=== PATIENT | female | born 1995 | race African-American/Black ===

== ENCOUNTER → 2016-05-15 | Outpatient (CLI) | payer BC | LOC: MW.CHOBGYN 09:48 | PROVIDERS: ATTEND Obstetrics & Gynecology | DX: Z34.90 Encounter for supervision of normal pregnancy, unspecified, unspecified trimester (principal) | CPT/HCPCS: 36415; 81003; 82105; 82677; 84702; 85027; 86336; 86592; 86762; 86803; 86850; 86900; 86901; 87086; 87340; 87389 ==

== ENCOUNTER → 2016-06-11 | Outpatient (CLI) | payer BC | LOC: MW.CHOBGYN 09:19 | PROVIDERS: ATTEND Advanced Practice Midwife | DX: A74.9 Chlamydial infection, unspecified (principal) | CPT/HCPCS: 87491; 87591 ==

== ENCOUNTER → 2016-07-09 | Outpatient (CLI) | payer BC | END | disposition home or self-care (01) | LOC: MW.CHOBGYN 09:05 | PROVIDERS: ATTEND Advanced Practice Midwife | DX: Z34.90 Encounter for supervision of normal pregnancy, unspecified, unspecified trimester (principal) | CPT/HCPCS: 36415; 82950; 85027; 86850 ==

== ENCOUNTER 2016-10-03 07:40 | Emergency (ER) | payer BC, MEDICAID ==
[2016-10-03] MEDS ORDERED: Benzocaine 20% Topical Spray UD MUCMEM ONE (08:00)
[2016-10-03] MEDS ORDERED: Lidocaine 2% Viscous Solution 15 ML Cup PO ONE (08:00)
--- NOTE | 2016-10-03 08:06 | EDM.PDOC ---
ED HPI GENERAL MEDICAL PROBLEM - General Chief Complaint: ENT Problem Stated Complaint: JAW/TOOTH PAIN Time Seen by Provider: 10/03/16 07:48 - History of Present Illness INITIAL COMMENTS - FREE TEXT/NARRATIVE: HISTORY AND PHYSICAL: History of present illness: The patient is a 21-year-old female with no significant past medical history but who is 37 weeks with her first child and is going to be delivering here at our hospital with our nurse welder tech; the patient presents with complaints of dental pain of one her right upper molar teeth. She says that in area has broken off due to a cavity and there is pain there. She is asking for a pain shot. She has not talked to her provider about pain management nor has she went to see a dentist. She has no facial swelling no sore throat fever chills nausea vomiting or other systemic complaints. She's had no vaginal bleeding and no abdominal pain contractions or cramping today and the baby has been moving. Review of systems: As per history of present illness and below otherwise all systems reviewed and negative. Past medical history: As per history of present illness and as reviewed below otherwise noncontributory. Surgical history: As per history of present illness and as reviewed below otherwise noncontributory. Social history: No reported history of drug or alcohol abuse. Family history: As per history of present illness and as reviewed below otherwise noncontributory. Physical exam: Gen.: Well-developed well-nourished female who is visibly gravid and nontoxic HEENT: Atraumatic, normocephalic, pupils reactive, negative for conjunctival pallor or scleral icterus, mucous membranes moist, throat clear, neck supple, nontender, trachea midline. There is an area at her right upper molar tooth that has a small fragment missing and there is minimal swelling in the area but no fluctuance and there is tenderness. There is no facial swelling and there is some shoddy anterior cervical adenopathy without nuchal rigidity. Lungs: Clear to auscultation, breath sounds equal bilaterally, chest nontender. Heart: S1S2, regular rate and rhythm no overt murmurs Abdomen: Soft, nondistended, nontender. Gravid uterus which is nontender Pelvis: Deferred Genitourinary: Deferred. Rectal: Deferred. Extremities: Atraumatic, negative for cords or calf pain. Neurovascular unremarkable. Neuro: Awake, alert, oriented. Cranial nerves II through XII unremarkable. Cerebellum unremarkable. Motor and sensory unremarkable throughout. Exam nonfocal. Diagnostics: heart [id number] Therapeutics: Dental balls I told the patient that I would discuss pain management with the nurse welder tech as she is close to delivery of this child and I did not want to give her any narcotics. She is asking for a "pain shot". I will give her dental balls and discuss further management with her provider. 0803: Case was discussed with Zeynep Yost the nurse welder tech was aware of the case and agrees with the dental balls and amoxicillin prescription and says that she can see this patient in her clinic now to further discuss pain management and any other concerns. Impression: Dental pain/fracture, third trimester stable Definitive disposition and diagnosis as appropriate pending reevaluation and review of above. 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 ED EXAM, GENERAL - Physical Exam Exam: See Below (See dictation) Course - Vital Signs Last Recorded V/S: Last Vital Signs Temp 36.6 C 10/03/16 07:45 Pulse 80 10/03/16 07:45 Resp 20 10/03/16 07:45 BP 125/60 10/03/16 07:45 Pulse Ox 99 10/03/16 07:45 - Orders/Labs/Meds Orders: Active Orders 24 hr Category Date Time Status Communication Order [RC] STAT Care 10/03/16 07:53 Ordered Benzocaine [Hurricaine One 20%] Med 10/03/16 08:00 Once 2 each MUCMEM ONETIME ONE Lidocaine 2% [Xylocaine 2% Viscous] Med 10/03/16 08:00 Once 15 ml PO ONETIME ONE Departure - Departure Time of Disposition: 08:07 Disposition: Home, Self-Care 01 Condition: Good Clinical Impression: Pain, dental, Third trimester - Discharge Information Forms: ED Department Discharge Additional Instructions: The following information is given to patients seen in the emergency department who are being discharged to home. This information is to outline your options for follow-up care. We provide all patients seen in our emergency department with a follow-up referral. The need for follow-up, as well as the timing and circumstances, are variable depending upon the specifics of your emergency department visit. If you don't have a primary care physician on staff, we will provide you with a referral. We always advise you to contact your personal physician following an emergency department visit to inform them of the circumstance of the visit and for follow-up with them and/or the need for any referrals to a consulting specialist. The emergency department will also refer you to a specialist when appropriate. This referral assures that you have the opportunity for followup care with a specialist. All of these measure are taken in an effort to provide you with optimal care, which includes your followup. Under all circumstances we always encourage you to contact your private physician who remains a resource for coordinating your care. When calling for followup care, please make the office aware that this follow-up is from your recent emergency room visit. If for any reason you are refused follow-up, please contact the [facility] emergency department at and ask to speak to the emergency department charge nurse. [facility] [address] [id number] You can use the dental balls your given today for pain as shown. A prescription for the amoxicillin and please go to the clinic to be seen by the nurse welder tech now to further discuss pain management. Return to ER as needed and as discussed - My Orders Last 24 Hours: My Active Orders 10/03/16 07:53 Communication Order [RC] STAT 10/03/16 08:00 Benzocaine [Hurricaine One 20%] 2 each MUCMEM ONETIME ONE Lidocaine 2% [Xylocaine 2% Viscous] 15 ml PO ONETIME ONE - Assessment/Plan Last 24 Hours: My Active Orders 10/03/16 07:53 Communication Order [RC] STAT 10/03/16 08:00 Benzocaine [Hurricaine One 20%] 2 each MUCMEM ONETIME ONE Lidocaine 2% [Xylocaine 2% Viscous] 15 ml PO ONETIME ONE
[2016-10-03 08:24] VITALS: BP 109/55
== END 2016-10-03 08:16 | disposition home or self-care (01) ==
LOC: MW.ED 07:40
DX: O99.613 Diseases of the digestive system complicating pregnancy, third trimester (principal); K03.81 Cracked tooth; O99.513 Diseases of the respiratory system complicating pregnancy, third trimester; J45.909 Unspecified asthma, uncomplicated; Z91.018 Allergy to other foods; Z3A.37 37 weeks gestation of pregnancy
CPT/HCPCS: 99282; A9270; 99283

== ENCOUNTER 2016-10-24 00:40 | Inpatient (IN) | payer BC, MEDICAID ==
[2016-10-24] MEDS ORDERED: Misoprostol 25 MCG (1/4 of 100 MCG) Tab VAG PRN (00:49)
[2016-10-24] MEDS ORDERED: Water For Irrigation,Sterile 1,000 ML Container IRR PRN (00:49)
[2016-10-24] MEDS ORDERED: Terbutaline 1 MG/ML SDV SUBCUT PRN (00:49)
[2016-10-24] MEDS ORDERED: Carboprost Tromethamine 250 MCG/1 ML Amp IM PRN (00:49)
[2016-10-24] MEDS ORDERED: Misoprostol 200 MCG Tab PO PRN (00:49)
[2016-10-24] MEDS ORDERED: Butorphanol 1 MG/ML SDV IVPUSH PRN (00:49)
[2016-10-24] MEDS ORDERED: Sodium Chloride 0.9% 10 ML Syringe FLUSH PRN (00:49)
[2016-10-24] MEDS ORDERED: Lidocaine 1% 50 ML MDV INJECT PRN (00:49)
[2016-10-24] MEDS ORDERED: Nalbuphine 10 MG/1 ML Vial IVPUSH PRN (00:49)
[2016-10-24] MEDS ORDERED: Methylergonovine 0.2 MG/1 ML Amp IM PRN (00:49)
[2016-10-24] MEDS ORDERED: Sodium Chloride 0.9% 2.5 ML Syringe FLUSH PRN (00:49)
[2016-10-24] MEDS ORDERED: Misoprostol 25 MCG (1/4 of 100 MCG) Tab VAG SCH (01:00)
[2016-10-24] MEDS ORDERED: Oxytocin/Lactated Ringers 30 UNIT/500 ML BAG IV SCH ×2 (01:00)
[2016-10-24] MEDS: Lactated Ringers 1,000 ML IV SCH ×4 (01:21→09:00)
--- NOTE | 2016-10-24 08:36 | PCM.LDHP ---
L&D History of Present Illness - General Date of Service: 10/24/16 Admit Problem/Dx: Patient Status Order with Admit Dx/Problem 10/24/16 00:49 Patient Status [ADT] Routine Admission Diagnosis/Problem Admission Diagnosis/Problem Source of Information: Patient History Limitations: Reports: No Limitations - History of Present Illness Improves with: Reports: None Worsens with: Reports: None Associated Symptoms: Reports: N - Related Data Allergies/Adverse Reactions: Allergies Allergy/AdvReac Type Severity Reaction Status Date / Time nuts Allergy throat Uncoded 04/27/16 22:07 swelling Home Medications: Home Meds Fluticasone Propionate [Flonase Allergy Relief] 2 spray INH ASDIRECTED PRN 10/08 [History] Montelukast [Singulair] 10 mg PO ONETIME 10/09/15 [History] Past Medical History - Past Health History Medical/Surgical History: Denies Medical/Surgical History Other HEENT History: broken/missing teeth Cardiovascular History: Reports: None Respiratory History: Reports: Asthma 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: , 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) 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 Musculoskeletal History: Reports: 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) Other Musculoskeletal History: Scoliosis Psychiatric History: Reports: None - Infectious Disease History Infectious Disease History: Reports: Chicken Pox, Hepatitis B Social & Family History - Family History Family Medical History: Noncontributory Cardiac: Reports: Hypertension : Reports: Dialysis OBGYN: Reports: Endocrine/Metabolic: Reports: Diabetes, type II Oncologic: Reports: Breast - Tobacco Use Smoking Status *Q: Never Smoker Years of Tobacco use: 2 Packs/Tins Daily: 0.1 Second Hand Smoke Exposure: No - Caffeine Use Caffeine Use: Reports: None - Recreational Drug Use Recreational Drug Use: No H&P Review of Systems - Review of Systems: Review Of Systems: See Below General: Reports: No Symptoms HEENT: Reports: No Symptoms Pulmonary: Reports: No Symptoms Cardiovascular: Reports: No Symptoms Gastrointestinal: Reports: No Symptoms Genitourinary: Reports: No Symptoms Musculoskeletal: Reports: No Symptoms Skin: Reports: No Symptoms Psychiatric: Reports: No Symptoms Neurological: Reports: No Symptoms Hematologic/Lymphatic: Reports: No Symptoms Immunologic: Reports: No Symptoms L&D Exam - Exam Exam: See Below - Vital Signs Weight: 67.6 kg - OB Specific Fundal Height In cm: 37 Contraction Intensity: Moderate to Strong Movement: Active Heart Tones: Present Presentation: Vertex - Barboza Score Barboza Score Cervix Position: Anterior Barboza Score Consistency: Soft Barboza Score Effacement: 51-70% Barboza Score Dilation: 3-4 cm Barboza Score Infant's Station: -2 Barboza Score Total: 9 - Exam General: Alert, Oriented HEENT: PERRLA, Conjunctiva Clear, EACs Clear, EOMI, Hearing Intact, Mucosa Moist & [place], Nares Patent, Normal Nasal Septum, Posterior Pharynx Clear, TMs Clear Neck: Supple, Trachea Midline Lungs: Clear to Auscultation, Normal Respiratory Effort Cardiovascular: Regular Rate, Regular Rhythm GI/Abdominal Exam: Normal Bowel Sounds, Soft, Non-Tender, No Organomegaly, No Distention, No Abnormal Bruit, No Mass, Pelvis Stable Rectal Exam: Normal Exam, Normal Rectal Tone Genitourinary: Normal external exam, Normal bimanual exam, Normal speculum exam Back Exam: Normal Inspection, Full Range of Motion Extremities: Normal Inspection, Normal Range of Motion, Non-Tender, No Pedal Edema, Normal Capillary Refill Skin: Warm, Dry, Intact Neurological: Cranial Nerves Intact, Reflexes Equal Bilateral Psychiatric: Alert, Normal Affect, Normal Mood - Patient Data Lab Results Last 24 hrs: Laboratory Results - last 24 hr 10/24/16 10/24/16 Range/Units 01:19 01:19 WBC 12.79 H (4.0-11.0) K/uL RBC 3.83 L (4.30-5.90) M/uL Hgb 11.1 L (12.0-16.0) g/dL Hct 34.5 L (36.0-46.0) % MCV 90.1 (80.0-98.0) fL MCH 29.0 (27.0-32.0) pg MCHC 32.2 (31.0-37.0) g/dL RDW Std Deviation 44.9 (28.0-62.0) fl RDW Coeff of Alaina 14 (11.0-15.0) % Plt Count 211 (150-400) K/uL MPV 11.10 (7.40-12.00) fL Blood Type AB POSITIVE Antibody Screen NEGATIVE Result Diagrams: 10/24/16 01:19 Problem List Initiated/Reviewed/Updated: Yes Orders Last 24hrs: Active Orders 24 hr Category Date Time Status Patient Status [ADT] Routine ADT 10/24/16 00:49 Active Bedrest Bathroom Privileges [RC] ASDIRECTED Care 10/24/16 00:49 Active Communication Order [RC] ASDIRECTED Care 10/24/16 00:49 Active Communication Order [RC] ASDIRECTED Care 10/24/16 00:49 Active Communication Order [RC] ASDIRECTED Care 10/24/16 00:49 Active Heart Tones [RC] CONTINUOUS Care 10/24/16 00:49 Active Non Stress Test [RC] PER UNIT ROUTINE Care 10/24/16 00:49 Active May Shower [RC] ASDIRECTED Care 10/24/16 00:49 Active Notify Provider [RC] PRN Care 10/24/16 00:49 Active Notify Provider [RC] PRN Care 10/24/16 00:49 Active Notify Provider [RC] PRN Care 10/24/16 00:49 Active Notify Provider [RC] STAT Care 10/24/16 00:49 Active Oxygen Therapy [RC] ASDIRECTED Care 10/24/16 00:49 Active Up ad Ivette [RC] ASDIRECTED Care 10/24/16 00:49 Active Vaginal Exam [RC] PRN Care 10/24/16 00:49 Active Vaginal Exam [RC] PRN Care 10/24/16 00:49 Active Vital Signs [RC] PER UNIT ROUTINE Care 10/24/16 00:49 Active Vital Signs [RC] PER UNIT ROUTINE Care 10/24/16 00:49 Active Clear Liquid Diet [DIET] Diet 10/24/16 Breakfast Active Butorphanol [Stadol] Med 10/24/16 00:49 Active 1 mg IVPUSH Q1H PRN Carboprost Tromethamine [Hemabate DS] Med 10/24/16 00:49 Active 250 mcg IM ASDIRECTED PRN Lactated Ringers [Ringers, Lactated] 1,000 ml Med 10/24/16 01:00 Active IV ASDIRECTED Lidocaine 1% [Xylocaine 1%] Med 10/24/16 00:49 Active 50 ml INJECT .ONCE PRN Methylergonovine [Methergine] Med 10/24/16 00:49 Active 0.2 mg IM ASDIRECTED PRN Misoprostol [Cytotec] Med 10/24/16 00:49 Active 200 mcg PO .ONCE PRN Misoprostol [Cytotec] Med 10/24/16 01:00 Active 25 mcg VAG .ONCE Misoprostol [Cytotec] Med 10/24/16 00:49 Active 25 mcg VAG Q4H PRN Oxytocin/Lactated Ringers [Pitocin in LR 30 Units/500 Med 10/24/16 01:00 Active ML] 30 unit in 500 ml IV TITRATE Sodium Chloride 0.9% [Saline Flush] Med 10/24/16 00:49 Active 10 ml FLUSH ASDIRECTED PRN Sodium Chloride 0.9% [Saline Flush] Med 10/24/16 00:49 Active 2.5 ml FLUSH ASDIRECTED PRN Terbutaline [Brethine] Med 10/24/16 00:49 Active 0.25 mg SUBCUT ASDIRECTED PRN Water For Irrigation,Sterile [Sterile Water for Med 10/24/16 00:49 Active Irrigation] 1,000 ml IRR ASDIRECTED PRN Scalp Electrode [WOMSER] Per Unit Routine Oth 10/24/16 00:49 Ordered Medication Administration Instruction [OM.PC] Q3H Oth 10/24/16 01:00 Ordered Peripheral IV Insertion Adult [OM.PC] Routine Oth 10/24/16 00:49 Ordered Resuscitation Status Routine Resus Stat 10/24/16 00:49 Ordered Medication Orders Butorphanol Tartrate (Stadol) 1 mg IVPUSH Q1H PRN PRN Reason: Pain Carboprost Tromethamine (Hemabate Ds) 250 mcg IM ASDIRECTED PRN PRN Reason: Post Hemorrhage Lactated Ringer's (Ringers, Lactated) 1,000 mls @ 150 mls/hr IV ASDIRECTED DEANDRE Last Admin: 10/24/16 02:04 Dose: 150 mls/hr Infusion: 10/24/16 02:04 Dose: 0 mls/hr Infusion: 10/24/16 02:04 Dose: 0 mls/hr Admin: 10/24/16 01:21 Dose: 150 mls/hr Oxytocin/Lactated Ringer's (Pitocin In Lr 30 Units/500 Ml) 30 unit in 500 mls @ 2 mls/hr IV TITRATE DEANDRE; 2 MUNITS/MIN PRN Reason: Protocol Last Titration: 10/24/16 04:34 Dose: 6 munits/min, 6 mls/hr Titration: 10/24/16 03:17 Dose: 4 munits/min, 4 mls/hr Admin: 10/24/16 02:45 Dose: 2 munits/min, 2 mls/hr Lidocaine HCl (Xylocaine 1%) 50 ml INJECT .ONCE PRN PRN Reason: Laceration repair Methylergonovine Maleate (Methergine) 0.2 mg IM ASDIRECTED PRN PRN Reason: Post Hemorrhage Misoprostol (Cytotec) 200 mcg PO .ONCE PRN PRN Reason: Post Hemorrhage Misoprostol (Cytotec) 25 mcg VAG .ONCE DEANDRE Misoprostol (Cytotec) 25 mcg VAG Q4H PRN PRN Reason: Cervical Ripening Stop: 10/25/16 04:50 Sodium Chloride (Saline Flush) 10 ml FLUSH ASDIRECTED PRN PRN Reason: Keep Vein Open Sodium Chloride (Saline Flush) 2.5 ml FLUSH ASDIRECTED PRN PRN Reason: Keep Vein Open Sterile Water (Sterile Water For Irrigation) 1,000 ml IRR ASDIRECTED PRN PRN Reason: delivery Terbutaline Sulfate (Brethine) 0.25 mg SUBCUT ASDIRECTED PRN PRN Reason: Tacysystole Assessment/Plan Comment:: Term admitted for elective induction she is responding to Pitocin. In active labor she can have epidural when she wanted
[2016-10-24] MEDS ORDERED: fentaNYL 100 MCG/2 ML SDV ONE ×2 (08:51→19:15)
[2016-10-24] MEDS ORDERED: Ropivacaine 0.2% 2 MG/ML 20 ML SDV ONE (08:52)
[2016-10-24] MEDS ORDERED: Ropivacaine HCl/PF 100 ML ONE (16:24)
[2016-10-24] MEDS ORDERED: Bupivacaine 0.25% 10 ML SDV ONE (16:24)
[2016-10-24] MEDS ORDERED: Bupivacaine 0.5% 10 ML SDV ONE (19:15)
[2016-10-24] MEDS ORDERED: Witch Hazel Medicated Pads 40/Jar TOP PRN (21:07)
[2016-10-24] MEDS ORDERED: Ibuprofen 400 MG Tab PO PRN (21:07)
[2016-10-24] MEDS ORDERED: oxyCODONE 5 MG Tab PO PRN (21:07)
[2016-10-24] MEDS ORDERED: Benzocaine/Menthol 20%-0.5% Spray 78 GM Cannister TOP PRN (21:07)
[2016-10-24] MEDS ORDERED: Bisacodyl 10 MG Supp RECTAL PRN (21:07)
[2016-10-24] MEDS ORDERED: Docusate Sodium 100 MG Cap PO PRN (21:07)
[2016-10-24] MEDS ORDERED: Lanolin 100% Cream 7 GM Tube TOP PRN (21:07)
[2016-10-24] MEDS ORDERED: Acetaminophen 500 MG Tab PO PRN ×2 (21:07)
--- NOTE | 2016-10-24 23:09 | PCM48HPAN ---
Post Anesthesia Note - EVALUATION WITHIN 48HRS OF ANESTHETIC Vital Signs in Normal Range: Yes Patient Participated in Evaluation: Yes Respiratory Function Stable: Yes Airway Patent: Yes Cardiovascular Function Stable: Yes Hydration Status Stable: Yes Pain Control Satisfactory: Yes Nausea and Vomiting Control Satisfactory: Yes Mental Status Recovered: Yes
[2016-10-24] MEDS: Ibuprofen 800 MG Tab PO PRN (23:56)
--- NOTE | 2016-10-25 01:22 | OR ---
SURGEON: Naren Perez MD DATE OF PROCEDURE: Ms. Riggins is a 21-year-old primigravida. She is 40+. She is admitted for an elective induction. At the time of admission, she was spontaneously dilated and she was 3 to 4 cm. She needed Pitocin augmentation. The patient continued to progress well. She had a variable deceleration throughout the process of labor with occasional late but later on, the heart tracing straightened out and it was category 1. The patient had epidural anesthesia for labor analgesia. She had an artificial rupture of the membrane at 4 cm and clear fluid. The patient continued to progress and she became complete-complete and she was able to accomplish a normal spontaneous vaginal delivery of male fetus. score reported to be 8 and 9. The weight is not available. The placenta delivered spontaneous, complete, and intact. The perineum was intact. There is no perineal or labial laceration. ESTIMATED BLOOD LOSS: 250 to 300 mL in this . There was no complication. MARCELO / RAMBO /[id number]
--- NOTE | 2016-10-25 09:08 | PCM.PNPP ---
- General Info Date of Service: 10/25/16 Functional Status: Reports: Pain Controlled - Review of Systems General: Reports: No Symptoms HEENT: Reports: No Symptoms Pulmonary: Reports: No Symptoms Cardiovascular: Reports: No Symptoms Gastrointestinal: Reports: No Symptoms Genitourinary: Reports: No Symptoms Musculoskeletal: Reports: No Symptoms Skin: Reports: No Symptoms Neurological: Reports: No Symptoms Psychiatric: Reports: No Symptoms - General Info Date of Service: 10/25/16 - Patient Data Weight - Most Recent: 67.6 kg Med Orders - Current: Current Medications Acetaminophen (Tylenol Extra Strength) 500 mg PO Q4H PRN PRN Reason: Pain Acetaminophen (Tylenol Extra Strength) 1,000 mg PO Q4H PRN PRN Reason: Pain Benzocaine/Menthol (Dermoplast Pain Relief 20%-0.5% [place]) 78 gm TOP ASDIRECTED PRN PRN Reason: Perineal Comfort Measure Bisacodyl (Dulcolax) 10 mg RECTAL .ONCE PRN PRN Reason: Constipation Butorphanol Tartrate (Stadol) 1 mg IVPUSH Q1H PRN PRN Reason: Pain Carboprost Tromethamine (Hemabate Ds) 250 mcg IM ASDIRECTED PRN PRN Reason: Post Hemorrhage Docusate Sodium (Colace) 100 mg PO BID PRN PRN Reason: Constipation Emollient Ointment (Lansinoh Hpa) 0 gm TOP ASDIRECTED PRN PRN Reason: Sore Nipples Lactated Ringer's (Ringers, Lactated) 1,000 mls @ 150 mls/hr IV ASDIRECTED DEANDRE Last Admin: 10/24/16 09:00 Dose: 150 mls/hr Oxytocin/Lactated Ringer's (Pitocin In Lr 30 Units/500 Ml) 30 unit in 500 mls @ 2 mls/hr IV TITRATE DEANDRE; 2 MUNITS/MIN PRN Reason: Protocol Last Titration: 10/24/16 14:55 Dose: 6 munits/min, 6 mls/hr Ibuprofen (Motrin) 400 mg PO Q4H PRN PRN Reason: Pain Ibuprofen (Motrin) 800 mg PO Q6H PRN PRN Reason: Pain Last Admin: 10/24/16 23:56 Dose: 800 mg Lidocaine HCl (Xylocaine 1%) 50 ml INJECT .ONCE PRN PRN Reason: Laceration repair Methylergonovine Maleate (Methergine) 0.2 mg IM ASDIRECTED PRN PRN Reason: Post Hemorrhage Misoprostol (Cytotec) 200 mcg PO .ONCE PRN PRN Reason: Post Hemorrhage Misoprostol (Cytotec) 25 mcg VAG .ONCE DEANDRE Oxycodone HCl (Oxycodone) 5 mg PO Q2H PRN PRN Reason: Pain Sodium Chloride (Saline Flush) 10 ml FLUSH ASDIRECTED PRN PRN Reason: Keep Vein Open Sodium Chloride (Saline Flush) 2.5 ml FLUSH ASDIRECTED PRN PRN Reason: Keep Vein Open Sterile Water (Sterile Water For Irrigation) 1,000 ml IRR ASDIRECTED PRN PRN Reason: delivery Terbutaline Sulfate (Brethine) 0.25 mg SUBCUT ASDIRECTED PRN PRN Reason: Tacysystole Witch Nayeli (Tucks) 1 pad TOP ASDIRECTED PRN PRN Reason: comfort care Discontinued Medications Bupivacaine HCl (Sensorcaine-Mpf 0.25%) Confirm Administered Dose 10 ml .ROUTE .STK-MED ONE Stop: 10/24/16 16:25 Bupivacaine HCl (Sensorcaine-Mpf 0.5%) Confirm Administered Dose 10 ml .ROUTE .STK-MED ONE Stop: 10/24/16 19:16 Fentanyl (Sublimaze) Confirm Administered Dose 100 mcg .ROUTE .STK-MED ONE Stop: 10/24/16 08:52 Fentanyl (Sublimaze) Confirm Administered Dose 100 mcg .ROUTE .STK-MED ONE Stop: 10/24/16 19:16 Oxytocin/Lactated Ringer's (Pitocin In Lr 30 Units/500 Ml) 30 unit in 500 mls @ 999 mls/hr IV TITRATE DEANDRE; 999 MUNITS/MIN PRN Reason: Protocol Stop: 10/24/16 01:31 Ropivacaine/Fentanyl/NS (Fentanyl 2 Mcg-Ropiv 0.2%-Ns) Confirm Administered Dose 100 mls @ as directed .ROUTE .STK-MED ONE Stop: 10/24/16 08:51 Ropivacaine (Naropin 0.2%) Confirm Administered Dose 100 mls @ as directed .ROUTE .STK-MED ONE Stop: 10/24/16 16:25 Misoprostol (Cytotec) 25 mcg VAG Q4H PRN PRN Reason: Cervical Ripening Stop: 10/25/16 04:50 Nalbuphine HCl (Nubain) 10 mg IVPUSH Q1H PRN PRN Reason: Pain (severe 7-10) Stop: 10/24/16 02:50 Ropivacaine (Naropin 0.2%) Confirm Administered Dose 20 ml .ROUTE .STK-MED ONE Stop: 10/24/16 08:53 - Infant Interaction Disposition, : Perry in Room with Family Interaction: Holding Feeding: Attempted ; Nursed Fair/Poor Support Person: Significant Other - Recovery Exam Fundal Tone: Firm Fundal Level: At Umbilicus Fundal Placement: Midline Lochia Amount: Small Lochia Color: Rubra/Red Perineum Description: Intact, Minimal Bruising/Swelling Episiotomy/Laceration: None Bladder Status: Voiding Urinary Elimination: Voided - Exam General: Alert, Oriented HEENT: Pupils Equal Neck: Supple Lungs: Clear to Auscultation, Normal Respiratory Effort Cardiovascular: Regular Rate, Regular Rhythm GI/Abdominal Exam: Normal Bowel Sounds, Soft, Non-Tender, No Organomegaly, No Distention, No Abnormal Bruit, No Mass, Pelvis Stable Extremities: Normal Inspection, Normal Range of Motion, Non-Tender, No Pedal Edema, Normal Capillary Refill Skin: Warm, Dry, Intact Wound/Incisions: Healing Well Neurological: No New Focal Deficit Psy/Mental Status: Alert, Normal Affect, Normal Mood - Problem List Review Problem List Initiated/Reviewed/Updated: Yes - My Orders Last 24 Hours: My Active Orders 10/24/16 21:07 Patient Status [ADT] Routine May Shower [RC] ASDIRECTED Up ad Ivette [RC] ASDIRECTED Vital Signs [RC] PER UNIT ROUTINE Acetaminophen [Tylenol Extra Strength] 1,000 mg PO Q4H PRN Acetaminophen [Tylenol Extra Strength] 500 mg PO Q4H PRN Benzocaine/Menthol [Dermoplast Pain Relief 20%-0.5% [place]] 78 gm TOP ASDIRECTED PRN Bisacodyl [Dulcolax] 10 mg RECTAL .ONCE PRN Docusate Sodium [Colace] 100 mg PO BID PRN Ibuprofen [Motrin] 400 mg PO Q4H PRN Ibuprofen [Motrin] 800 mg PO Q6H PRN Lanolin [Lansinoh HPA] See Dose Instructions TOP ASDIRECTED PRN Jersonyoana Nayeli [Tucks] 1 pad TOP ASDIRECTED PRN oxyCODONE 5 mg PO Q2H PRN Assess Lochia [WOMSER] Per Unit Routine Assess Uterine Involution [WOMSER] Per Unit Routine Peripheral IV Discontinue [OM.PC] Routine 10/25/16 05:11 HEMOGLOBIN/HEMATOCRIT,HH [HEME] Timed - Plan Plan:: Term admitted for elective induction she is responding to Pitocin. In active labor she can have epidural when she wanted
[2016-10-25] MEDS: Ibuprofen 800 MG Tab PO PRN ×2 (10:54→17:24)
[2016-10-26] MEDS: Ibuprofen 800 MG Tab PO PRN (06:38)
--- NOTE | 2016-10-26 09:04 | PCM.DCSUM1 ---
Discharge Summary - Discharge Data Discharge Date: 10/26/16 Discharge Disposition: Home, Self-Care 01 Condition: Good - Patient Instructions Diet: Usual Diet as Tolerated Activity: As Tolerated Driving: Do Not Drive Showering/Bathing: May Shower - Discharge Plan Home Medications: Home Meds Fluticasone Propionate [Flonase Allergy Relief] 2 spray INH ASDIRECTED PRN 10/08 [History] Montelukast [Singulair] 10 mg PO ONETIME 10/09/15 [History] Referrals: [facility] [Outside] Naren Perez MD [Physician] - 11/28/16 10:45 am - General Info Date of Service: 10/26/16 Functional Status: Reports: Pain Controlled - Review of Systems General: Reports: No Symptoms HEENT: Reports: No Symptoms Pulmonary: Reports: No Symptoms Cardiovascular: Reports: No Symptoms Gastrointestinal: Reports: No Symptoms Genitourinary: Reports: No Symptoms Musculoskeletal: Reports: No Symptoms Skin: Reports: No Symptoms Neurological: Reports: No Symptoms Psychiatric: Reports: No Symptoms - Patient Data Vitals - Most Recent: Last Vital Signs Temp 36.7 C 10/26/16 04:01 Pulse 80 10/26/16 04:01 Resp 16 10/26/16 04:01 BP 133/61 10/26/16 04:01 Pulse Ox 98 10/25/16 20:00 Weight - Most Recent: 67.6 kg Lab Results - Last 24 hrs: Laboratory Results - last 24 hr 10/25/16 Range/Units 05:10 Hgb 11.0 L (12.0-16.0) g/dL Hct 34.1 L (36.0-46.0) % Med Orders - Current: Current Medications Acetaminophen (Tylenol Extra Strength) 500 mg PO Q4H PRN PRN Reason: Pain Acetaminophen (Tylenol Extra Strength) 1,000 mg PO Q4H PRN PRN Reason: Pain Benzocaine/Menthol (Dermoplast Pain Relief 20%-0.5% [place]) 78 gm TOP ASDIRECTED PRN PRN Reason: Perineal Comfort Measure Bisacodyl (Dulcolax) 10 mg RECTAL .ONCE PRN PRN Reason: Constipation Butorphanol Tartrate (Stadol) 1 mg IVPUSH Q1H PRN PRN Reason: Pain Carboprost Tromethamine (Hemabate Ds) 250 mcg IM ASDIRECTED PRN PRN Reason: Post Hemorrhage Docusate Sodium (Colace) 100 mg PO BID PRN PRN Reason: Constipation Emollient Ointment (Lansinoh Hpa) 0 gm TOP ASDIRECTED PRN PRN Reason: Sore Nipples Lactated Ringer's (Ringers, Lactated) 1,000 mls @ 150 mls/hr IV ASDIRECTED DEANDRE Last Admin: 10/24/16 09:00 Dose: 150 mls/hr Oxytocin/Lactated Ringer's (Pitocin In Lr 30 Units/500 Ml) 30 unit in 500 mls @ 2 mls/hr IV TITRATE DEANDRE; 2 MUNITS/MIN PRN Reason: Protocol Last Titration: 10/24/16 14:55 Dose: 6 munits/min, 6 mls/hr Ibuprofen (Motrin) 400 mg PO Q4H PRN PRN Reason: Pain Ibuprofen (Motrin) 800 mg PO Q6H PRN PRN Reason: Pain Last Admin: 10/26/16 06:38 Dose: 800 mg Lidocaine HCl (Xylocaine 1%) 50 ml INJECT .ONCE PRN PRN Reason: Laceration repair Methylergonovine Maleate (Methergine) 0.2 mg IM ASDIRECTED PRN PRN Reason: Post Hemorrhage Misoprostol (Cytotec) 200 mcg PO .ONCE PRN PRN Reason: Post Hemorrhage Misoprostol (Cytotec) 25 mcg VAG .ONCE DEANDRE Oxycodone HCl (Oxycodone) 5 mg PO Q2H PRN PRN Reason: Pain Sodium Chloride (Saline Flush) 10 ml FLUSH ASDIRECTED PRN PRN Reason: Keep Vein Open Sodium Chloride (Saline Flush) 2.5 ml FLUSH ASDIRECTED PRN PRN Reason: Keep Vein Open Sterile Water (Sterile Water For Irrigation) 1,000 ml IRR ASDIRECTED PRN PRN Reason: delivery Terbutaline Sulfate (Brethine) 0.25 mg SUBCUT ASDIRECTED PRN PRN Reason: Tacysystole Witch Nayeli (Tucks) 1 pad TOP ASDIRECTED PRN PRN Reason: comfort care Discontinued Medications Bupivacaine HCl (Sensorcaine-Mpf 0.25%) Confirm Administered Dose 10 ml .ROUTE .[facility] [place]-MED ONE Stop: 10/24/16 16:25 Bupivacaine HCl (Sensorcaine-Mpf 0.5%) Confirm Administered Dose 10 ml .ROUTE .[facility]-MED ONE Stop: 10/24/16 19:16 Fentanyl (Sublimaze) Confirm Administered Dose 100 mcg .ROUTE .[facility]-MED ONE Stop: 10/24/16 08:52 Fentanyl (Sublimaze) Confirm Administered Dose 100 mcg .ROUTE .[facility]-MED ONE Stop: 10/24/16 19:16 Oxytocin/Lactated Ringer's (Pitocin In Lr 30 Units/500 Ml) 30 unit in 500 mls @ 999 mls/hr IV TITRATE DEANDRE; 999 MUNITS/MIN PRN Reason: Protocol Stop: 10/24/16 01:31 Ropivacaine/Fentanyl/NS (Fentanyl 2 Mcg-Ropiv 0.2%-Ns) Confirm Administered Dose 100 mls @ as directed .ROUTE .ST[facility]-MED ONE Stop: 10/24/16 08:51 Ropivacaine (Naropin 0.2%) Confirm Administered Dose 100 mls @ as directed .ROUTE .STK-MED ONE Stop: 10/24/16 16:25 Misoprostol (Cytotec) 25 mcg VAG Q4H PRN PRN Reason: Cervical Ripening Stop: 10/25/16 04:50 Nalbuphine HCl (Nubain) 10 mg IVPUSH Q1H PRN PRN Reason: Pain (severe 7-10) Stop: 10/24/16 02:50 Ropivacaine (Naropin 0.2%) Confirm Administered Dose 20 ml .ROUTE .STK-MED ONE Stop: 10/24/16 08:53 - Exam General: Reports: Alert, Oriented HEENT: Reports: Pupils Equal, Pupils Reactive, EOMI, Mucous Membr. Moist/Learned Neck: Reports: Supple Lungs: Reports: Clear to Auscultation, Normal Respiratory Effort Cardiovascular: Reports: Regular Rate, Regular Rhythm GI/Abdominal Exam: Normal Bowel Sounds, Soft, Non-Tender, No Organomegaly, No Distention, No Abnormal Bruit, No Mass, Pelvis Stable (Female) Exam: Normal External Exam, Normal Speculum Exam, Normal Bimanual Exam Rectal (Female) Exam: Normal Exam, Normal Rectal Tone Back Exam: Reports: Normal Inspection, Full Range of Motion Extremities: Normal Inspection, Normal Range of Motion, Non-Tender, No Pedal Edema, Normal Capillary Refill Skin: Reports: Warm, Dry, Intact Wound/Incisions: Reports: Healing Well Neurological: Reports: No New Focal Deficit Psy/Mental Status: Reports: Alert, Normal Affect, Normal Mood *Q Meaningful Use (DIS) - VTE *Q VTE Criteria *Q: - Stroke *Q Stroke Criteria *Q: - AMI *Q AMI Criteria *Q:
[2016-10-26 09:42] VITALS: BP 124/68
== END 2016-10-26 17:07 | disposition home or self-care (01) | DRG 560 ==
LOC: MW.OBCHECK 00:40 → MW.OB 00:43 → MW.OBCHECK 00:49 → MW.OB 00:49 → OBSVTOIN 19:01 → MW.OB 23:45 → MW.MS 10-25 13:00 → MW.OB 10-25 18:37
PROVIDERS: ADMIT Obstetrics & Gynecology; ATTEND Obstetrics & Gynecology
PROC: 10E0XZZ Delivery of Products of Conception, External Approach (ICD-10-PCS; principal; 2016-10-24)
PROC: 10907ZC Drainage of Amniotic Fluid, Therapeutic from Products of Conception, Via Natural or Artificial Opening (ICD-10-PCS; 2016-10-24)
PROC: 3E033VJ Introduction of Other Hormone into Peripheral Vein, Percutaneous Approach (ICD-10-PCS; 2016-10-24)
DX: O80 Encounter for full-term uncomplicated delivery (principal); Z3A.40 40 weeks gestation of pregnancy; Z37.0 Single live birth
CPT/HCPCS: 01967; 36415; 59025; 85014; 85018; 85027; 86850; 86900; 86901; A9270-GY; J2795; J3010; J7120

== ENCOUNTER 2017-03-31 16:48 | Emergency (ER) | payer BC, MEDICAID ==
[2017-03-31 17:11] VITALS: BP 125/57
--- NOTE | 2017-03-31 18:00 | EDM.PDOC ---
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 Past medical history: As per history of present illness and as reviewed below otherwise noncontributory. Surgical history: As per history of present illness and as reviewed below otherwise noncontributory. Social history: No reported history of drug or alcohol abuse. Family history: As per history of present illness and as reviewed below otherwise noncontributory. Physical exam: HEENT: Atraumatic, normocephalic, pupils reactive, negative for conjunctival pallor or scleral icterus, mucous membranes moist, throat clear, neck supple, nontender, trachea midline. Lungs: Clear to auscultation, breath sounds equal bilaterally, chest nontender. Heart: S1S2, regular, negative for clicks, rubs, or JVD. Abdomen: Soft, nondistended, nontender. Negative for masses or hepatosplenomegaly. Negative for costovertebral tenderness. Pelvis: Stable nontender. Genitourinary: Deferred. Rectal: Deferred. Extremities: Atraumatic, negative for cords or calf pain. Neurovascular unremarkable. Neuro: Awake, alert, oriented. Cranial nerves II through XII unremarkable. Cerebellum unremarkable. Motor and sensory unremarkable throughout. Exam nonfocal. Diagnostics: CBC ABO Rh quantitative beta pelvic ultrasound Therapeutics: None Impression: #1 vaginal bleeding #2 history of first trimester #3 threatened Definitive disposition and diagnosis as appropriate pending reevaluation and review of above. 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: , 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) 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 Musculoskeletal History: Reports: 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) Other Musculoskeletal History: Scoliosis Psychiatric History: Reports: None - Infectious Disease History Infectious Disease History: Reports: Chicken Pox, Hepatitis B Social & Family History - Family History Family Medical History: Noncontributory Cardiac: Reports: Hypertension : Reports: Dialysis OBGYN: Reports: Endocrine/Metabolic: Reports: Diabetes, type II Oncologic: Reports: Breast - Tobacco Use Smoking Status *Q: Never Smoker Years of Tobacco use: 2 Packs/Tins Daily: 0.1 Second Hand Smoke Exposure: No - Caffeine Use Caffeine Use: Reports: None - Recreational Drug Use Recreational Drug Use: No ED ROS GENERAL - Review of Systems Review Of Systems: ROS reveals no pertinent complaints other than HPI. ED EXAM, GENERAL - Physical Exam Exam: See Below (See dictation) Course - Vital Signs Text/Narrative:: Patient's emergency room course has been unremarkable patient refused vaginal exam and transvaginal ultrasound she did consent to transabdominal ultrasound and lab work ultrasound suggestive of likely complete AB quantitative beta is 19 ,000 I discussed with patient the unclear clinical diagnoses at this point but it most likely represents incomplete and recommended admission for observation patient declined to leave AMA and follow-up private medical doctor she is return for persistent or worsening bleeding pain as discussed Last Recorded V/S: Last Vital Signs Temp 37.0 C 03/31/17 17:06 Pulse 85 03/31/17 17:06 Resp 18 03/31/17 17:06 BP 125/57 L 03/31/17 17:06 Pulse Ox 98 03/31/17 17:06 - Orders/Labs/Meds Orders: Active Orders 24 hr Category Date Time Status OB 1st Tri Sgl 1st Gest [US] Stat Exams 03/31/17 17:23 Taken CULTURE URINE [RM] Stat Lab 03/31/17 17:25 Received Labs: Laboratory Tests 03/31/17 03/31/17 03/31/17 Range/Units 17:25 17:32 17:32 WBC 8.84 (4.0-11.0) K/uL RBC 4.07 L (4.30-5.90) M/uL Hgb 13.0 (12.0-16.0) g/dL Hct 37.0 (36.0-46.0) % MCV 90.9 (80.0-98.0) fL MCH 31.9 (27.0-32.0) pg MCHC 35.1 (31.0-37.0) g/dL RDW Std Deviation 41.9 (28.0-62.0) fl RDW Coeff of Alaina 13 (11.0-15.0) % Plt Count 237 (150-400) K/uL MPV 10.10 (7.40-12.00) fL Neut % (Auto) 71.3 (48.0-80.0) % Lymph % (Auto) 21.3 (16.0-40.0) % Bibb % (Auto) 3.8 (0.0-15.0) % Eos % (Auto) 3.1 (0.0-7.0) % Baso % (Auto) 0.5 (0.0-1.5) % Neut # (Auto) 6.3 H (1.4-5.7) K/uL Lymph # (Auto) 1.9 (0.6-2.4) K/uL Bibb # (Auto) 0.3 (0.0-0.8) K/uL Eos # (Auto) 0.3 (0.0-0.7) K/uL Baso # (Auto) 0.0 (0.0-0.1) K/uL Nucleated RBC % 0.0 /100WBC Nucleated RBCs # 0 K/uL HCG, Quant 49684.1 mIU/mL Urine Color RED Urine Appearance BLOODY Urine pH 6.0 (5.0-8.0) Ur Specific Dulzura >= 1.030 (1.001-1.035) Urine Protein 100 (NEGATIVE) mg/dL Urine Glucose (UA) NEGATIVE (NEGATIVE) mg/dL Urine Ketones NEGATIVE (NEGATIVE) mg/dL Urine Occult Blood LARGE H (NEGATIVE) Urine Nitrite NEGATIVE (NEGATIVE) Urine Bilirubin NEGATIVE (NEGATIVE) Urine Urobilinogen 0.2 (<2.0) EU/dL Ur Leukocyte Esterase TRACE (NEGATIVE) Urine RBC TOO NUMEROUS TO CT (0-2/HPF) Urine WBC 1-2 (0-5/HPF) Ur Epithelial Cells FEW (NONE-FEW) Urine Bacteria FEW (NEGATIVE) Blood Type 03/31/17 Range/Units 17:32 WBC (4.0-11.0) K/uL RBC (4.30-5.90) M/uL Hgb (12.0-16.0) g/dL Hct (36.0-46.0) % MCV (80.0-98.0) fL MCH (27.0-32.0) pg MCHC (31.0-37.0) g/dL RDW Std Deviation (28.0-62.0) fl RDW Coeff of Alaina (11.0-15.0) % Plt Count (150-400) K/uL MPV (7.40-12.00) fL Neut % (Auto) (48.0-80.0) % Lymph % (Auto) (16.0-40.0) % Bibb % (Auto) (0.0-15.0) % Eos % (Auto) (0.0-7.0) % Baso % (Auto) (0.0-1.5) % Neut # (Auto) (1.4-5.7) K/uL Lymph # (Auto) (0.6-2.4) K/uL Bibb # (Auto) (0.0-0.8) K/uL Eos # (Auto) (0.0-0.7) K/uL Baso # (Auto) (0.0-0.1) K/uL Nucleated RBC % /100WBC Nucleated RBCs # K/uL HCG, Quant mIU/mL Urine Color Urine Appearance Urine pH (5.0-8.0) Ur Specific [place] (1.001-1.035) Urine Protein (NEGATIVE) mg/dL Urine Glucose (UA) (NEGATIVE) mg/dL Urine Ketones (NEGATIVE) mg/dL Urine Occult Blood (NEGATIVE) Urine Nitrite (NEGATIVE) Urine Bilirubin (NEGATIVE) Urine Urobilinogen (<2.0) EU/dL Ur Leukocyte Esterase (NEGATIVE) Urine RBC (0-2/HPF) Urine WBC (0-5/HPF) Ur Epithelial Cells (NONE-FEW) Urine Bacteria (NEGATIVE) Blood Type AB POSITIVE Departure - Departure Time of Disposition: 18:39 Disposition: Against Medical Advice 07 Condition: Good Clinical Impression: Complete - Discharge Information Referrals: Zeynep Yost CNM [Primary Care Provider] - Forms: ED Department Discharge Additional Instructions: The following information is given to patients seen in the emergency department who are being discharged to home. This information is to outline your options for follow-up care. We provide all patients seen in our emergency department with a follow-up referral. The need for follow-up, as well as the timing and circumstances, are variable depending upon the specifics of your emergency department visit. If you don't have a primary care physician on staff, we will provide you with a referral. We always advise you to contact your personal physician following an emergency department visit to inform them of the circumstance of the visit and for follow-up with them and/or the need for any referrals to a consulting specialist. The emergency department will also refer you to a specialist when appropriate. This referral assures that you have the opportunity for followup care with a specialist. All of these measure are taken in an effort to provide you with optimal care, which includes your followup. Under all circumstances we always encourage you to contact your private physician who remains a resource for coordinating your care. When calling for followup care, please make the office aware that this follow-up is from your recent emergency room visit. If for any reason you are refused follow-up, please contact the [facility] emergency department at and asked to speak to the emergency department charge nurse. 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
--- NOTE | 2017-04-01 16:37 | US ---
EXAM DATE: 03/31/17 PATIENT'S AGE: 21 Patient: JETT HWANG Facility: [place] [place] Site . Site : 1996 Study: US OB Pelvis [id number]/28/2018 6:06:09 PM Ordering Physician: Eliane Frank Final Report: INDICATION: Bleeding and passing large clots for 2 days. Approximately 10-11 weeks by dates. TECHNIQUE: Transabdominal pelvic ultrasound with grayscale and color Doppler imaging. Patient declined transvaginal portion of the examination. COMPARISON: None. FINDINGS: Uterus is 12.5 x 5.4 x 7.8 cm. No discrete uterine mass. The endometrial stripe measures 17 mm. No living intrauterine . Right ovary is 5.2 x 1.1 x 3 cm and is within normal limits. Left ovary is 3.8 x 1.9 x 3.3 cm and is within normal limits. Normal appearing color Doppler flow in the bilateral ovaries. No pelvic free fluid. IMPRESSION: No living intrauterine . Mild thickening of the endometrial stripe likely represents sequela of recent spontaneous . Dictated by Rafa Knight MD @ 03/31/2017 6:11:35 PM Dictated by: Raaf Knight MD @ 03/31/2017 18:11:55 (Electronic Signature) Report Signed by Proxy. HORT[facility] MEDICAL CENTERJosh
== END 2017-03-31 18:47 | disposition left against medical advice (07) ==
LOC: MW.ED 16:48
DX: O03.9 Complete or unspecified spontaneous abortion without complication (principal); Z91.018 Allergy to other foods
CPT/HCPCS: 36415; 76801; 76801-26; 81001; 84702; 85025; 86900; 86901; 87086; 99284-25

== ENCOUNTER 2018-04-01 11:12 | Emergency (ER) | payer BC ==
--- NOTE | 2018-04-01 11:30 | EDM.PDOC ---
ED HPI GENERAL MEDICAL PROBLEM - General Chief Complaint: Bite:Animal, Insect Stated Complaint: BIT ON FACE Time Seen by Provider: 04/01/18 11:14 Source of Information: Reports: Patient History Limitations: Reports: No Limitations - History of Present Illness INITIAL COMMENTS - FREE TEXT/NARRATIVE: HISTORY AND PHYSICAL: History of present illness: Patient is a 22-year-old female who presents to the emergency room with complaints of a possible bug bite to her upper forehead along her hairline. She states that she noticed these bumps yesterday and now feels like she has some fullness in her left ear. States she washed her hair this morning and did not notice any irritation or bumps in her actual scalp. She is concerned that there may be a bug inside her left ear. She denies any fevers, chills, chest pain, shortness of breath or cough. Denies any abdominal pain, nausea, vomiting, diarrhea, constipation or dysuria. Denies any recent chemical products/ treatments of her hair. Review of systems: As per history of present illness and below otherwise all systems reviewed and negative. Past medical history: As per history of present illness and as reviewed below otherwise noncontributory. Surgical history: As per history of present illness and as reviewed below otherwise noncontributory. Social history: See social history for further information Family history: As per history of present illness and as reviewed below otherwise noncontributory. Physical exam: General: Well-developed and well-nourished 22-year-old -[place] female. Alert and oriented. Nontoxic appearing and in no acute distress. HEENT: Atraumatic, normocephalic, pupils equal and reactive bilaterally, negative for conjunctival pallor or scleral icterus, mucous membranes moist, TMs normal bilaterally, throat clear, neck supple, nontender, trachea midline. No drooling or trismus noted. No meningeal signs. No hot potato voice noted. Lungs: Clear to auscultation, breath sounds equal bilaterally, chest nontender. Heart: S1S2, regular rate and rhythm without overt murmur Abdomen: Soft, nondistended, nontender. Negative for masses or hepatosplenomegaly. Negative for costovertebral tenderness. Pelvis: Stable nontender. Genitourinary: Deferred. Rectal: Deferred. Skin: Small pustule folliculitis-appearing area to the upper left scalp along her hairline. Otherwise skin is intact, warm, dry. No lesions or rashes noted. Extremities: Atraumatic, negative for cords or calf pain. Neurovascular unremarkable. Neuro: Awake, alert, oriented. Cranial nerves II through XII unremarkable. Cerebellum unremarkable. Motor and sensory unremarkable throughout. Exam nonfocal. Diagnostics: None Therapeutics: None Prescription: Bactroban Impression: Folliculitis Plan: 1. Wash area twice daily with warm water and gentle soap. Keep clean and dry. 2. Apply the Bactroban ointment 3 times daily over the next 7-10 days. 3. Follow-up with your primary care provider and/or a boathouse keeper in the next 1-2 days. Return to the ED as needed and as discussed. Definitive disposition and diagnosis as appropriate pending reevaluation and review of above. - Related Data Allergies Allergy/AdvReac Type Severity Reaction Status Date / Time apple Allergy Hives Verified 04/01/18 11:25 nuts Allergy throat Uncoded 03/31/17 17:12 swelling Home Meds: Home Meds . 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 ED EXAM, ANIMAL BITE - Physical Exam Exam: See Below (See dictation) Course - Vital Signs Last Recorded V/S: Last Vital Signs Temp 97.4 F 04/01/18 11:26 Pulse 84 04/01/18 11:44 Resp 16 04/01/18 11:44 BP 106/47 L 04/01/18 11:44 Pulse Ox 98 04/01/18 11:44 Departure - Departure Time of Disposition: 11:30 Disposition: Home, Self-Care 01 Clinical Impression: Folliculitis - Discharge Information Instructions: Folliculitis Referrals: Zeynep Yost CNM [Primary Care Provider] - Forms: ED Department Discharge Additional Instructions: The following information is given to patients seen in the emergency department who are being discharged to home. This information is to outline your options for follow-up care. We provide all patients seen in our emergency department with a follow-up referral. The need for follow-up, as well as the timing and circumstances, are variable depending upon the specifics of your emergency department visit. If you don't have a primary care physician on staff, we will provide you with a referral. We always advise you to contact your personal physician following an emergency department visit to inform them of the circumstance of the visit and for follow-up with them and/or the need for any referrals to a consulting specialist. The emergency department will also refer you to a specialist when appropriate. This referral assures that you have the opportunity for follow-up care with a specialist. All of these measure are taken in an effort to provide you with optimal care, which includes your follow-up. Under all circumstances we always encourage you to contact your private physician who remains a resource for coordinating your care. When calling for follow-up care, please make the office aware that this follow-up is from your recent emergency room visit. If for any reason you are refused follow-up, please contact the [facility] Emergency Department at and asked to speak to the emergency department charge nurse. [facility] [address] [place] [id number] [id number] 1. Wash area twice daily with warm water and gentle soap. Keep clean and dry. 2. Apply the Bactroban ointment 3 times daily over the next 7-10 days. 3. Follow-up with your primary care provider and/or a boathouse keeper in the next 1-2 days. Return to the ED as needed and as discussed.
[2018-04-01 11:45] VITALS: BP 106/47
== END 2018-04-01 11:45 | disposition home or self-care (01) ==
LOC: MW.ED 11:12
DX: L73.9 Follicular disorder, unspecified (principal); Z91.018 Allergy to other foods
CPT/HCPCS: 99282; 99283

== ENCOUNTER 2018-04-19 22:53 | Emergency (ER) | payer BC ==
--- NOTE | 2018-04-19 22:56 | EDM.PDOC ---
ED HPI GENERAL MEDICAL PROBLEM - General Chief Complaint: ENT Problem Stated Complaint: CONGESTION/SWOLLEN GLANDS Time Seen by Provider: 04/19/18 22:56 Source of Information: Reports: Patient - History of Present Illness INITIAL COMMENTS - FREE TEXT/NARRATIVE: HISTORY AND PHYSICAL: History of present illness: [Sore throat for 5 days increasing in severity no muffled voice drooling or trismus Denies fever nausea vomiting chills sweats ] Review of systems: As per history of present illness and below otherwise all systems reviewed and negative. Past medical history: As per history of present illness and as reviewed below otherwise noncontributory. Surgical history: As per history of present illness and as reviewed below otherwise noncontributory. Social history: No reported history of drug or alcohol abuse. Family history: As per history of present illness and as reviewed below otherwise noncontributory. Physical exam: HEENT: Atraumatic, normocephalic, pupils reactive, negative for conjunctival pallor or scleral icterus, mucous membranes moist, throat clear, neck supple, nontender, trachea midline. other erythema no exudates Lungs: Clear to auscultation, breath sounds equal bilaterally, chest nontender. Heart: S1S2, regular, negative for clicks, rubs, or JVD. Abdomen: Soft, nondistended, nontender. Negative for masses or hepatosplenomegaly. Negative for costovertebral tenderness. Pelvis: Stable nontender. Genitourinary: Deferred. Rectal: Deferred. Extremities: Atraumatic, negative for cords or calf pain. Neurovascular unremarkable. Neuro: Awake, alert, oriented. Cranial nerves II through XII unremarkable. Cerebellum unremarkable. Motor and sensory unremarkable throughout. Exam nonfocal. Diagnostics: [Influenza/strep ] Therapeutics: [ amoxicillin 1 ] Impression: [ pharyngitis ] Definitive disposition and diagnosis as appropriate pending reevaluation and review of above. throat Pain Score (Numeric/FACES): 6 - Related Data Allergies Allergy/AdvReac Type Severity Reaction Status Date / Time apple Allergy Hives Verified 04/19/18 22:56 nuts Allergy throat Uncoded 04/19/18 22:56 swelling Home Meds: Home Meds . 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 Musculoskeletal History: Reports: 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) Other Musculoskeletal History: Scoliosis Psychiatric History: Reports: None - Infectious Disease History Infectious Disease History: Reports: Chicken Pox, Hepatitis B Social & Family History - Family History Family Medical History: Noncontributory Cardiac: Reports: Hypertension : Reports: Dialysis OBGYN: Reports: Endocrine/Metabolic: Reports: Diabetes, type II Oncologic: Reports: Breast - Caffeine Use Caffeine Use: Reports: None ED ROS GENERAL - Review of Systems Review Of Systems: See Below ED EXAM, GENERAL - Physical Exam Exam: See Below Course - Vital Signs Last Recorded V/S: Last Vital Signs Temp 97.9 F 04/19/18 22:55 Pulse 80 04/19/18 22:55 Resp 18 04/19/18 22:55 BP 118/74 04/19/18 22:55 Pulse Ox 95 04/19/18 22:55 - Orders/Labs/Meds Orders: Active Orders 24 hr Category Date Time Status CULTURE STREP A CONFIRMATION [RM] Stat Lab 04/19/18 23:00 Results STREP SCRN A RAPID W CULT CONF [RM] Stat Lab 04/19/18 23:00 Results Departure - Departure Time of Disposition: 23:33 Disposition: Home, Self-Care 01 Condition: Good Clinical Impression: Pharyngitis - Discharge Information Forms: ED Department Discharge Additional Instructions: The following information is given to patients seen in the emergency department who are being discharged to home. This information is to outline your options for follow-up care. We provide all patients seen in our emergency department with a follow-up referral. The need for follow-up, as well as the timing and circumstances, are variable depending upon the specifics of your emergency department visit. If you don't have a primary care physician on staff, we will provide you with a referral. We always advise you to contact your personal physician following an emergency department visit to inform them of the circumstance of the visit and for follow-up with them and/or the need for any referrals to a consulting specialist. The emergency department will also refer you to a specialist when appropriate. This referral assures that you have the opportunity for follow-up care with a specialist. All of these measure are taken in an effort to provide you with optimal care, which includes your follow-up. Under all circumstances we always encourage you to contact your private physician who remains a resource for coordinating your care. When calling for follow-up care, please make the office aware that this follow-up is from your recent emergency room visit. If for any reason you are refused follow-up, please contact the [facility] emergency department at and asked to speak to the emergency department charge nurse. - My Orders Last 24 Hours: My Active Orders 04/19/18 23:00 CULTURE STREP A CONFIRMATION [RM] Stat STREP SCRN A RAPID W CULT CONF [RM] Stat - Assessment/Plan Last 24 Hours: My Active Orders 04/19/18 23:00 CULTURE STREP A CONFIRMATION [RM] Stat STREP SCRN A RAPID W CULT CONF [RM] Stat
[2018-04-19 23:08] VITALS: BP 118/74
== END 2018-04-19 23:40 | disposition home or self-care (01) ==
LOC: MW.ED 22:53
DX: J02.9 Acute pharyngitis, unspecified (principal); Z91.018 Allergy to other foods
CPT/HCPCS: 87081; 87804; 87880-QW; 99283; 99284

== ENCOUNTER 2019-03-23 05:43 | Emergency (ER) | payer BC ==
--- NOTE | 2019-03-23 06:15 | EDM.PDOC ---
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 Has mild low back pain. No abdominal pain. Denies history of STIs. Denies any dysuria. Has mild headache, not first or worst headache, not maximal or sudden in onset. Denies any chest pain dyspnea or syncope. No rash. REVIEW OF SYSTEMS: Other than the symptoms associated with the present events, the following is reported with regard to recent health: General: (-) fever. HENT: (-) congestion. Respiratory: (-) cough. Cardiovascular: (-) chest pain. GI: (-) abdominal pain. : (-) urinary complaints. Musculoskeletal: (-) other aches or pains. Endocrine: (-) generalized weakness. Neurological: (-) localized weakness. Skin: (-) rash PAST MEDICAL HISTORY: reviewed as per nursing notes SOCIAL HISTORY: reviewed as per nursing notes, MEDICATIONS: Per nurse's note ALLERGIES: Per nurse's note, reviewed by me PHYSICAL EXAMINATION: GENERALIZED APPEARANCE: well developed, well nourished in no distress VITAL SIGNS: Per nurse's note, reviewed by me SKIN: Warm, dry; (-) cyanosis; (-) rash. HEAD: (-) scalp swelling, (-) tenderness. EYES: (-) conjunctival pallor, (-) scleral icterus. ENMT: (-) stridor; mucous membranes moist. NECK: (-) tenderness, (-) stiffness, CHEST AND RESPIRATORY: (-) rales, (-) rhonchi, (-) wheezes; breath sounds equal bilaterally. HEART AND CARDIOVASCULAR: (-) irregularity; (-) murmur, (-) gallop. ABDOMEN AND GI: Soft; (-) tenderness, (-) guarding, (-) rebound, (-) palpable masses, : mild vaginal bleeding from closed cervical os. no CMT or adnexal palpable masses, tenderness. EXTREMITIES: (-) deformity, (-) edema. NEURO AND PSYCH: Alert. Cranial nerves grossly intact; strength symmetric. gait steady DIAGNOSTICS: Ultrasound ordered CBC, hcg and ABO/Rh ordered EMERGENCY DEPARTMENT COURSE AND TREATMENT: Patient's condition remained stable during Emergency Department evaluation. Care transferred to Dr. Argueta pending above diagnostics and disposition, likely discharge to home. (Angela Matt) Patient is 23-year-old female signed out from overnight team presenting with threatened miscarriage. Patient had ultrasound which was done in the emergency department which shows approximately 10-week old fetus with a heart rate within normal limits. Patient does not require RhoGam and patient instructed to follow -up with NETWORK TECHNICIAN. Patient given education regarding pelvic rest and strict return precautions. All questions addressed and answered. 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: , 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) Other NETWORK TECHNICIAN 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 Musculoskeletal History: Reports: 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) Other Musculoskeletal History: Scoliosis Neurological History: Reports: None Psychiatric History: Reports: None Dermatologic History: Reports: None - Infectious Disease History Infectious Disease History: Reports: Chicken Pox <Angela Matt - Last Filed: 03/23/19 07:09> Social & Family History - Family History Family Medical History: Noncontributory Cardiac: Reports: Hypertension : Reports: Dialysis OBGYN: Reports: Endocrine/Metabolic: Reports: Diabetes, type II Oncologic: Reports: Breast - Tobacco Use Smoking Status *Q: Never Smoker - Caffeine Use Caffeine Use: Reports: None - Recreational Drug Use Recreational Drug Use: No <Angela Matt - Last Filed: 03/23/19 07:09> ED ROS GENERAL - Review of Systems Review Of Systems: See Below (see dictation) <Angela Matt - Last Filed: 03/23/19 07:09> ED EXAM - Physical Exam Exam: See Below (see dictation) <Angela Matt - Last Filed: 03/23/19 07:09> - Vital Signs Last Recorded V/S: Last Vital Signs Temp 36.6 C 03/23/19 05:56 Pulse 92 03/23/19 05:56 Resp 18 03/23/19 05:56 BP 114/70 03/23/19 05:56 Pulse Ox 97 03/23/19 05:56 - Orders/Labs/Meds Orders: Active Orders 24 hr Category Date Time Status Pelvic Exam, Set Up [RC] ASDIRECTED Care 03/23/19 06:27 Active Labs: Laboratory Tests 03/23/19 03/23/19 03/23/19 Range/Units 06:00 06:55 06:55 WBC 10.50 (4.0-11.0) K/uL RBC 4.44 (4.30-5.90) M/uL Hgb 14.1 (12.0-16.0) g/dL Hct 41.8 (36.0-46.0) % MCV 94.1 (80.0-98.0) fL MCH 31.8 (27.0-32.0) pg MCHC 33.7 (31.0-37.0) g/dL RDW Std Deviation 41.7 (28.0-62.0) fl RDW Coeff of [place] 12 (11.0-15.0) % Plt Count 259 (150-400) K/uL MPV 10.30 (7.40-12.00) fL Neut % (Auto) 74.6 (48.0-80.0) % Lymph % (Auto) 19.0 (16.0-40.0) % [place] % (Auto) 4.1 (0.0-15.0) % Eos % (Auto) 2.0 (0.0-7.0) % Baso % (Auto) 0.3 (0.0-1.5) % Neut # (Auto) 7.8 H (1.4-5.7) K/uL Lymph # (Auto) 2.0 (0.6-2.4) K/uL [place] # (Auto) 0.4 (0.0-0.8) K/uL Eos # (Auto) 0.2 (0.0-0.7) K/uL Baso # (Auto) 0.0 (0.0-0.1) K/uL Nucleated RBC % 0.0 /100WBC Nucleated RBCs # 0 K/uL HCG, Quant 648290.0 mIU/mL Urine Color YELLOW Urine Appearance CLOUDY Urine pH 6.0 (5.0-8.0) Ur Specific [place] >= 1.030 (1.001-1.035) Urine Protein NEGATIVE (NEGATIVE) mg/dL Urine Glucose (UA) NEGATIVE (NEGATIVE) mg/dL Urine Ketones NEGATIVE (NEGATIVE) mg/dL Urine Occult Blood LARGE H (NEGATIVE) Urine Nitrite NEGATIVE (NEGATIVE) Urine Bilirubin NEGATIVE (NEGATIVE) Urine Urobilinogen 1.0 (<2.0) EU/dL Ur Leukocyte Esterase NEGATIVE (NEGATIVE) Urine RBC 12-15 (0-2/HPF) Urine WBC 1-3 (0-5/HPF) Ur Epithelial Cells MANY (NONE-FEW) Urine Bacteria FEW (NEGATIVE) Urine Mucus LIGHT (NONE-MOD) Blood Type Antibody Screen 03/23/19 03/23/19 Range/Units 06:55 08:07 WBC (4.0-11.0) K/uL RBC (4.30-5.90) M/uL Hgb (12.0-16.0) g/dL Hct (36.0-46.0) % MCV (80.0-98.0) fL MCH (27.0-32.0) pg MCHC (31.0-37.0) g/dL RDW Std Deviation (28.0-62.0) fl RDW Coeff of [place] (11.0-15.0) % Plt Count (150-400) K/uL MPV (7.40-12.00) fL Neut % (Auto) (48.0-80.0) % Lymph % (Auto) (16.0-40.0) % [place] % (Auto) (0.0-15.0) % Eos % (Auto) (0.0-7.0) % Baso % (Auto) (0.0-1.5) % Neut # (Auto) (1.4-5.7) K/uL Lymph # (Auto) (0.6-2.4) K/uL [place] # (Auto) (0.0-0.8) K/uL Eos # (Auto) (0.0-0.7) K/uL Baso # (Auto) (0.0-0.1) K/uL Nucleated RBC % /100WBC Nucleated RBCs # K/uL HCG, Quant mIU/mL Urine Color Urine Appearance Urine pH (5.0-8.0) Ur Specific [place] (1.001-1.035) Urine Protein (NEGATIVE) mg/dL Urine Glucose (UA) (NEGATIVE) mg/dL Urine Ketones (NEGATIVE) mg/dL Urine Occult Blood (NEGATIVE) Urine Nitrite (NEGATIVE) Urine Bilirubin (NEGATIVE) Urine Urobilinogen (<2.0) EU/dL Ur Leukocyte Esterase (NEGATIVE) Urine RBC (0-2/HPF) Urine WBC (0-5/HPF) Ur Epithelial Cells (NONE-FEW) Urine Bacteria (NEGATIVE) Urine Mucus (NONE-MOD) Blood Type AB POSITIVE AB POSITIVE Antibody Screen NEGATIVE Departure - Departure Condition: Good - Discharge Information *PRESCRIPTION DRUG MONITORING PROGRAM REVIEWED*: Not Applicable *COPY OF PRESCRIPTION DRUG MONITORING REPORT IN PATIENT LUDIN: Not Applicable <Angela Matt - Last Filed: 03/23/19 07:09> - Departure Time of Disposition: 08:51 <Roddy Argueta - Last Filed: 03/23/19 08:52> - Departure Disposition: Home, Self-Care 01 Clinical Impression: Threatened miscarriage - Discharge Information Instructions: Threatened Miscarriage, [id number], Vaginal Bleeding During , First Trimester, [id number] Referrals: Zeynep Yost CNM [Mid-] - 1 Day Forms: ED Department Discharge Additional Instructions: The following information is given to patients seen in the emergency department who are being discharged to home. This information is to outline your options for follow-up care. We provide all patients seen in our emergency department with a follow-up referral. The need for follow-up, as well as the timing and circumstances, are variable depending upon the specifics of your emergency department visit. If you don't have a primary care physician on staff, we will provide you with a referral. We always advise you to contact your personal physician following an emergency department visit to inform them of the circumstance of the visit and for follow-up with them and/or the need for any referrals to a consulting specialist. The emergency department will also refer you to a specialist when appropriate. This referral assures that you have the opportunity for follow-up care with a specialist. All of these measure are taken in an effort to provide you with optimal care, which includes your follow-up. Under all circumstances we always encourage you to contact your private physician who remains a resource for coordinating your care. When calling for follow-up care, please make the office aware that this follow-up is from your recent emergency room visit. If for any reason you are refused follow-up, please contact the [facility] Emergency Department at and asked to speak to the emergency department charge nurse. Sepsis Event Note - Evaluation Sepsis Screening Result: No Definite Risk - Focused Exam Date Exam was Performed: 03/23/19 Time Exam was Performed: 07:09 <Angela Matt - Last Filed: 03/23/19 07:09> - Focused Exam Date Exam was Performed: 03/23/19 Time Exam was Performed: 08:51 <Roddy Argueta - Last Filed: 03/23/19 08:52> - Focused Exam Vital Signs: Vital Signs Temp Pulse Resp BP Pulse Ox 03/23/19 05:56 36.6 C 92 18 114/70 97
--- NOTE | 2019-03-23 07:55 | US ---
1st trimester obstetrical ultrasound: Multiple real-time images were obtained transvaginally. Comparison: No prior study for current . Dates: Current ultrasound: [facility] 10/16/19, gestational age 10 weeks 3 days Single intrauterine gestation is seen. Amniotic fluid volume is normal. Embryo is present. No subchorionic hemorrhage is seen. Right and left adnexa appear within normal limits. Measurements: [place]-rump length: 3.57 cm - 10 weeks 3 days Heart rate: 151 BPM Impression: 1. Single intrauterine gestation. Dates as noted above. 2. No complicating process is seen by ultrasound at this time. Diagnostic code #1 This report was dictated in [place] Standard Time
[2019-03-23 09:12] VITALS: BP 122/66; PULSE 86
== END 2019-03-23 09:12 | disposition home or self-care (01) ==
LOC: MW.ED 05:43
DX: O20.0 Threatened abortion (principal); J45.909 Unspecified asthma, uncomplicated; Z3A.10 10 weeks gestation of pregnancy; Z91.018 Allergy to other foods
CPT/HCPCS: 36415; 76817; 76817-26; 81001; 84702; 85025; 86850; 86900; 86901; 99284; 99284-25

== ENCOUNTER 2019-05-03 17:44 | Emergency (ER) | payer BC ==
[2019-05-03] MEDS ORDERED: Lidocaine 2% Viscous Solution 15 ML Cup PO ONE (17:57)
[2019-05-03] MEDS ORDERED: Benzocaine 20% Topical Spray UD MUCMEM ONE (17:57)
--- NOTE | 2019-05-03 17:57 | EDM.PDOC ---
ED HPI GENERAL MEDICAL PROBLEM - General Chief Complaint: ENT Problem Stated Complaint: ABCESS TOOTH X2 Time Seen by Provider: 05/03/19 17:48 Source of Information: Reports: Patient History Limitations: Reports: No Limitations - History of Present Illness INITIAL COMMENTS - FREE TEXT/NARRATIVE: HISTORY AND PHYSICAL: History of present illness: Patient is a 23-year-old female who presents to the emergency room with complaints of known dental abscess. She states that she has had chronic problems with her posterior molars and last month did have one partially removed. She states that the dentist had left a piece in and they recommended that she follow-up to have this removed. She states she did not want to attend that dental office and does have an upcoming appointment in [place] She is currently 4 months and does see Zeynep Yost at the clinic. She has not had any OB related concerns. She states that her SEAT COVERER prescribed her pen VK although she confesses she has not been taking this as prescribed. She states she has been taking this "more as needed". She is here today requesting to be placed on amoxicillin as she states this is worked well for her in the past. Patient denies any fever, chills, headache, change in vision, syncope or near syncope. Denies any chest pain, back pain, shortness of breath or cough. Denies any abdominal pain, nausea, vomiting, diarrhea, constipation or dysuria. Has not noted any blood in urine or stool. No OB related complaints. Patient has been eating and drinking appropriately. Review of systems: As per history of present illness and below otherwise all systems reviewed and negative. Past medical history: As per history of present illness and as reviewed below otherwise noncontributory. Surgical history: As per history of present illness and as reviewed below otherwise noncontributory. Social history: See social history for further information Family history: As per history of present illness and as reviewed below otherwise noncontributory. Physical exam: General: Well-developed and well-nourished 23-year-old -Slov[place] female. Alert and oriented. Nontoxic-appearing and in no acute distress. HEENT: Atraumatic, normocephalic, pupils equal and reactive bilaterally, negative for conjunctival pallor or scleral icterus, mucous membranes moist, mild erythema noted to bilateral posterior molars along the lower jawline, TMs normal bilaterally, throat clear, neck supple, nontender, trachea midline. No drooling or trismus noted. No meningeal signs. No hot potato voice noted. Lungs: Clear to auscultation, breath sounds equal bilaterally, chest nontender. Heart: S1S2, regular rate and rhythm without overt murmur Abdomen: Soft, , nontender. Negative for costovertebral tenderness. Skin: Intact, warm, dry. No lesions or rashes noted. Extremities: Atraumatic, moves all extremities per self without difficulty or deficits, negative for cords or calf pain. Neurovascular unremarkable. Neuro: Awake, alert, oriented. Cranial nerves II through XII unremarkable. Cerebellum unremarkable. Motor and sensory unremarkable throughout. Exam nonfocal. Notes: Augmentin is safe in . 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 I did encourage her to call on Saturday if she is requiring further pain management. Supportive care measures were reviewed and discussed. Voices understanding and is agreeable to plan of care. Denies any further questions or concerns at this time. Diagnostics: None Therapeutics: Dental Balls, Augmentin Prescription: Augmentin Impression: Dental Abscess Plan: 1. Please take the antibiotic as prescribed, Augmentin 875mg twice daily x 7 days. 2. Tylenol as needed for pain management. "Tooth Balls" have been given to you; apply along the gumline every 2-3 hours as needed. Do not swallow these; external use only. 3. Follow-up with a dentist in [place] for definitive care. Return to the ED as needed and as discussed. Definitive disposition and diagnosis as appropriate pending reevaluation and review of above. Oral/Mouth Pain Score (Numeric/FACES): 4 - Related Data Allergies Allergy/AdvReac Type Severity Reaction Status Date / Time apple Allergy Hives Verified 05/03/19 17:50 nuts Allergy throat Uncoded 05/03/19 17:50 swelling Home Meds: Home Meds Ondansetron [Zofran ODT] 4 mg PO ASDIRECTED 03/23/19 [History] Amoxicillin/Clavulanate K [Augmentin 875-125 MG] 1 tab PO BID 7 Days #14 tablet 05/03/19 [Rx] Past Medical History - Past Health History Medical/Surgical History: Denies Medical/Surgical History Other HEENT History: broken/missing teeth Cardiovascular History: Reports: None Respiratory History: Reports: Asthma SEAT COVERER History: Reports: , 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) 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 Musculoskeletal History: Reports: 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) Other Musculoskeletal History: Scoliosis Neurological History: Reports: None Psychiatric History: Reports: None Dermatologic History: Reports: None - Infectious Disease History Infectious Disease History: Reports: Chicken Pox Social & Family History - Family History Family Medical History: Noncontributory Cardiac: Reports: Hypertension : Reports: Dialysis OBGYN: Reports: Endocrine/Metabolic: Reports: Diabetes, type II Oncologic: Reports: Breast - Caffeine Use Caffeine Use: Reports: None ED ROS ENT - Review of Systems Review Of Systems: Comprehensive ROS is negative, except as noted in HPI. ED EXAM, ENT - Physical Exam Exam: See Below (See dictation) Course - Vital Signs Last Recorded V/S: Last Vital Signs Temp 97.6 F 05/03/19 17:50 Pulse 96 05/03/19 17:50 Resp 17 05/03/19 17:50 BP 117/64 05/03/19 17:50 Pulse Ox 97 05/03/19 17:50 - Orders/Labs/Meds Meds: Medications Discontinued Medications Generic Name Dose Route Start Last Admin Trade Name Angel Luisq PRN Reason Stop Dose Admin Amoxicillin/Clavulanate Potassium 1 tab 05/03/19 18:09 Augmentin 875 Mg/125 Mg PO 05/03/19 18:10 ONETIME ONE Benzocaine 2 each 05/03/19 17:57 Hurricaine One 20% MUCMEM 05/03/19 17:58 ONETIME ONE Lidocaine HCl 15 ml 05/03/19 17:57 Xylocaine 2% Viscous PO 05/03/19 17:58 ONETIME ONE Departure - Departure Time of Disposition: 18:09 Disposition: Home, Self-Care 01 Clinical Impression: Dental abscess - Discharge Information Prescriptions: Amoxicillin/Clavulanate K [Augmentin 875-125 MG] 1 tab PO BID 7 Days #14 tablet Instructions: Dental Abscess, [id number] Referrals: PCP,None [Primary Care Provider] - Forms: ED Department Discharge Additional Instructions: The following information is given to patients seen in the emergency department who are being discharged to home. This information is to outline your options for follow-up care. We provide all patients seen in our emergency department with a follow-up referral. The need for follow-up, as well as the timing and circumstances, are variable depending upon the specifics of your emergency department visit. If you don't have a primary care physician on staff, we will provide you with a referral. We always advise you to contact your personal physician following an emergency department visit to inform them of the circumstance of the visit and for follow-up with them and/or the need for any referrals to a consulting specialist. The emergency department will also refer you to a specialist when appropriate. This referral assures that you have the opportunity for follow-up care with a specialist. All of these measure are taken in an effort to provide you with optimal care, which includes your follow-up. Under all circumstances we always encourage you to contact your private physician who remains a resource for coordinating your care. When calling for follow-up care, please make the office aware that this follow-up is from your recent emergency room visit. If for any reason you are refused follow-up, please contact the [facility] at and asked to speak to the emergency department charge nurse. [facility] [address] [place] [address] [place] [address] 1. Please take the antibiotic as prescribed, Augmentin 875mg twice daily x 7 days. 2. Tylenol as needed for pain management. "Tooth Balls" have been given to you; apply along the gumline every 2-3 hours as needed. Do not swallow these; external use only. 3. Follow-up with a dentist in [place] for definitive care. Return to the ED as needed and as discussed. Sepsis Event Note - Focused Exam Vital Signs: Vital Signs Temp Pulse Resp BP Pulse Ox 05/03/19 17:50 97.6 F 96 17 117/64 97 Date Exam was Performed: 05/03/19 Time Exam was Performed: 18:10
[2019-05-03] MEDS ORDERED: Amoxicillin/Clavulanate K 875-125 MG Tab PO ONE (18:09)
[2019-05-03 18:25] VITALS: BP 124/74; PULSE 95
== END 2019-05-03 18:22 | disposition home or self-care (01) ==
LOC: MW.ED 17:44
DX: K04.7 Periapical abscess without sinus (principal)
CPT/HCPCS: 99282; A9270

== ENCOUNTER 2020-05-14 01:40 | Inpatient (IN) | payer BC ==
[2020-05-14] MEDS ORDERED: Lidocaine 1% 50 ML MDV INJECT PRN (02:08)
[2020-05-14] MEDS ORDERED: Carboprost Tromethamine 250 MCG/1 ML Amp IM PRN (02:08)
[2020-05-14] MEDS ORDERED: Ampicillin 2 GM in Sodium Chloride 0.9% 100 ML IV ONE (02:08)
[2020-05-14] MEDS ORDERED: Sodium Chloride 0.9% 10 ML SDV IV PRN (02:08)
[2020-05-14] MEDS ORDERED: Butorphanol 1 MG/ML SDV IVPUSH PRN (02:08)
[2020-05-14] MEDS ORDERED: Nalbuphine 10 MG/1 ML Vial IVPUSH PRN (02:08)
[2020-05-14] MEDS ORDERED: Misoprostol 200 MCG Tab PO PRN (02:08)
[2020-05-14] MEDS ORDERED: Methylergonovine 0.2 MG/1 ML Amp IM PRN (02:08)
[2020-05-14] MEDS ORDERED: Sodium Chloride 0.9% 2.5 ML Syringe FLUSH PRN (02:08)
[2020-05-14] MEDS ORDERED: Sodium Chloride 0.9% 10 ML Syringe FLUSH PRN (02:08)
[2020-05-14] MEDS ORDERED: Tranexamic Acid 1,000 MG in Sodium Chloride 0.9% 100 ML IV PRN (02:08)
[2020-05-14] MEDS ORDERED: Water For Irrigation,Sterile 1,000 ML Container IRR PRN (02:08)
[2020-05-14] MEDS: Lactated Ringers 1,000 ML IV SCH ×4 (02:15→08:12)
[2020-05-14] MEDS ORDERED: Oxytocin/0.9 % Sodium Chloride 30 UNIT/500 ML BAG IV SCH (02:15)
[2020-05-14] MEDS ORDERED: fentaNYL 100 MCG/2 ML SDV ONE ×2 (03:29→12:19)
[2020-05-14] MEDS ORDERED: Ropivacaine HCl/PF 100 ML ONE ×2 (03:29→12:19)
--- NOTE | 2020-05-14 03:56 | PCM.PREANE ---
Preanesthetic Assessment - Anesthesia/Transfusion/Family Hx Anesthesia History: Prior Anesthesia Without Reaction Family History of Anesthesia Reaction: No - Physical Assessment NPO Status Date: 05/14/20 NPO Status Time: 00:05 Height: 1.55 m Weight: 78.471 kg ASA Class: 2 - Lab Values: Laboratory Last Values WBC 8.39 K/uL (4.0-11.0) 05/14/20 02:13 RBC 3.96 M/uL (4.30-5.90) L 05/14/20 02:13 Hgb 12.8 g/dL (12.0-16.0) 05/14/20 02:13 Hct 38.3 % (36.0-46.0) 05/14/20 02:13 MCV 96.7 fL (80.0-98.0) 05/14/20 02:13 MCH 32.3 pg (27.0-32.0) H 05/14/20 02:13 MCHC 33.4 g/dL (31.0-37.0) 05/14/20 02:13 RDW Std Deviation 44.6 fl (28.0-62.0) 05/14/20 02:13 RDW Coeff of Alaina 13 % (11.0-15.0) 05/14/20 02:13 Plt Count 149 K/uL (150-400) L 05/14/20 02:13 MPV 12.50 fL (7.40-12.00) H 05/14/20 02:13 Nucleated RBC % 0.0 /100WBC 05/14/20 02:13 Nucleated RBCs # 0 K/uL 05/14/20 02:13 Urine Color YELLOW 05/14/20 02:20 Urine Appearance SLT CLOUDY 05/14/20 02:20 Urine pH 6.0 (5.0-8.0) 05/14/20 02:20 Ur Specific [place] 1.020 (1.001-1.035) 05/14/20 02:20 Urine Protein NEGATIVE mg/dL (NEGATIVE) 05/14/20 02:20 Urine Glucose (UA) NEGATIVE mg/dL (NEGATIVE) 05/14/20 02:20 Urine Ketones TRACE mg/dL (NEGATIVE) H 05/14/20 02:20 Urine Occult Blood LARGE (NEGATIVE) H 05/14/20 02:20 Urine Nitrite NEGATIVE (NEGATIVE) 05/14/20 02:20 Urine Bilirubin NEGATIVE (NEGATIVE) 05/14/20 02:20 Urine Urobilinogen 1.0 EU/dL (<2.0) 05/14/20 02:20 Ur Leukocyte Esterase TRACE (NEGATIVE) H 05/14/20 02:20 Membrane Rupture POSITIVE 05/14/20 02:00 SARS-CoV-2 RNA (CHUYITA) NEGATIVE (NEGATIVE) 05/14/20 02:25 Blood Type AB POSITIVE 05/14/20 02:13 Antibody Screen NEGATIVE 05/14/20 02:13 - Allergies Allergies/Adverse Reactions: Allergies Allergy/AdvReac Type Severity Reaction Status Date / Time apple Allergy Hives Verified 05/03/19 17:50 nuts Allergy throat Uncoded 05/03/19 17:50 swelling - Acknowledgements Anesthesia Type Planned: Epidural Pt an Appropriate Candidate for the Planned Anesthesia: Yes Alternatives and Risks of Anesthesia Discussed w Pt/Guardian: Yes Pt/Guardian Understands and Agrees with Anesthesia Plan: Yes PreAnesthesia Questionnaire - Past Health History Medical/Surgical History: Denies Medical/Surgical History Other HEENT History: broken/missing teeth Cardiovascular History: Reports: None Respiratory History: Reports: Asthma 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: Reports: , 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) 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 Musculoskeletal History: Reports: 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) Other Musculoskeletal History: Scoliosis Neurological History: Reports: None Psychiatric History: Reports: None Dermatologic History: Reports: None - Infectious Disease History Infectious Disease History: Reports: Chicken Pox - HOME MEDS Home Medications: Home Meds Ondansetron [Zofran ODT] 4 mg PO ASDIRECTED 03/23/19 [History] Amoxicillin/Clavulanate K [Augmentin 875-125 MG] 1 tab PO BID 7 Days #14 tablet 05/03/19 [Rx] - CURRENT (IN HOUSE) MEDS Current Meds: Current Medications Butorphanol Tartrate (Butorphanol 1 Mg/Ml Sdv) 1 mg IVPUSH Q1H PRN PRN Reason: Pain Carboprost Tromethamine (Carboprost Tromethamine 250 Mcg/1 Ml Amp) 250 mcg IM ASDIRECTED PRN PRN Reason: Post Hemorrhage Oxytocin/Sodium Chloride (Oxytocin 30 Unit/500 Ml-Ns) 30 unit in 500 mls @ 999 mls/hr IV TITRATE [facility] Tranexamic Acid 1,000 mg/ (Sodium Chloride) 110 mls @ 660 mls/hr IV ONETIME PRN PRN Reason: Bleeding Lactated Ringer's (Ringers, Lactated) 1,000 mls @ 150 mls/hr IV ASDIRECTED [facility] Last Admin: 05/14/20 02:15 Dose: 999 mls/hr Documented by: Ampicillin Sodium 1 gm/ Sodium (Chloride) 50 mls @ 100 mls/hr IV Q4H [facility] Lidocaine HCl (Lidocaine 1% 50 Ml Mdv) 50 ml INJECT ONETIME PRN PRN Reason: Laceration repair Methylergonovine Maleate (Methylergonovine 0.2 Mg/1 Ml Amp) 0.2 mg IM ASDIRECTED PRN PRN Reason: Post Hemorrhage Misoprostol (Misoprostol 200 Mcg Tab) 200 mcg PO ONETIME PRN PRN Reason: Post Hemorrhage Nalbuphine HCl (Nalbuphine 10 Mg/1 Ml Vial) 10 mg IVPUSH Q1H PRN PRN Reason: Pain (severe 7-10) Sodium Chloride (Sodium Chloride 0.9% 10 Ml Syringe) 10 ml FLUSH ASDIRECTED PRN PRN Reason: Keep Vein Open Sodium Chloride (Sodium Chloride 0.9% 2.5 Ml Syringe) 2.5 ml FLUSH ASDIRECTED PRN PRN Reason: Keep Vein Open Sodium Chloride (Sodium Chloride 0.9% 10 Ml Sdv) 10 ml IV ASDIRECTED PRN PRN Reason: IV Use Sterile Water (Water For Irrigation,Sterile 1,000 Ml Container) 1,000 ml IRR ASDIRECTED PRN PRN Reason: delivery Discontinued Medications Fentanyl (Fentanyl 100 Mcg/2 Ml Sdv) Confirm Administered Dose 100 mcg .ROUTE .STK-MED ONE Stop: 05/14/20 03:30 Ampicillin Sodium 2 gm/ Sodium (Chloride) 100 mls @ 200 mls/hr IV ONETIME ONE Stop: 05/14/20 02:37 Last Admin: 05/14/20 03:01 Dose: 200 mls/hr Documented by: Ropivacaine (Naropin 0.2%) Confirm Administered Dose 100 mls @ as directed .ROUTE .STK-MED ONE Stop: 05/14/20 03:30
--- NOTE | 2020-05-14 04:00 | PCM.PRNOTE ---
- Free Text/Narrative Note: Anes NOte Patietn requests epidural for L&D. Sitting position, levle L3-L4 midline approach. Sterile technique. Chloraprep scrub to lumbar area. Sterile fenestrated drape applied. Epidural space easily achieved single attempt using GLORIA technique. GLORIA at 3 cm. Cath threaded 5 cm with ease. Cath secured at skin using sterile clear adhesive dressing. 0345 Test 3 cc 1.5% lido with epi negative. 0347 Load 10 cc 0.2% ropivicaine with 1 mcg cc fentanyl added in sloe divided doses. 0351 Pump started with 90 cc same solution. Rate is 8 cc hr wiht 6 cc q 20 min prn bolus. Mera well. Time wiht patient [id number]. Varghese Stratton PAPIER MACHE MOLDER
[2020-05-14] MEDS: Ampicillin 1 GM in Sodium Chloride 0.9% 50 ML IV SCH ×2 (06:33→10:53)
[2020-05-14] MEDS ORDERED: Sodium Chloride 0.9% 50 ML ONE (10:38)
[2020-05-14] MEDS ORDERED: Ampicillin 1 GM Vial ONE (10:38)
--- NOTE | 2020-05-14 12:31 | PCM.PRNOTE ---
- Free Text/Narrative Note: Anes Note Epidural infusion has completed. A new infusion of 100 cc 0.2% ropivicaine wiht 1 mcg cc fetnayl added was placed. Rate is 8 cc hr with 6 cc q 20 min prn bolus. Time with patient [id number] Varghese Stratton CRNA
[2020-05-14] MEDS ORDERED: Bisacodyl 10 MG Supp RECTAL PRN (13:07)
[2020-05-14] MEDS ORDERED: Benzocaine/Menthol 20%-0.5% Spray 78 GM Cannister TOP PRN (13:07)
[2020-05-14] MEDS ORDERED: Ibuprofen 400 MG Tab PO PRN (13:07)
[2020-05-14] MEDS ORDERED: Lanolin 100% Cream 7 GM Tube TOP PRN (13:07)
[2020-05-14] MEDS ORDERED: Witch Hazel Medicated Pads 40/Jar TOP PRN (13:07)
[2020-05-14] MEDS ORDERED: Acetaminophen 500 MG Tab PO PRN (13:07)
[2020-05-14] MEDS ORDERED: oxyCODONE 5 MG Tab PO PRN (13:07)
[2020-05-14] MEDS: Docusate Sodium 100 MG Cap PO PRN (14:42)
[2020-05-14] MEDS: Acetaminophen 500 MG Tab PO PRN (14:42)
--- NOTE | 2020-05-14 16:03 | OR ---
SURGEON: Juan Manuel Waters MD DATE OF PROCEDURE: 05/14/2020 INDICATIONS FOR PROCEDURE: A 24-year-old G3, P1-0-1-1 at 40 weeks and 3 days, presenting in early labor. The patient reports she had small gushes of fluid starting around midnight the day before, but did not have a large gush or contractions. Therefore, she did not come in to be evaluated. She started feeling [id number] contractions that are regular for the past few hours. After arriving in Labor and Delivery, she was found to be 4 cm dilated with bulging membranes, but did have a positive AmniSure confirming rupture of membranes. She is GBS positive. Ampicillin was started for GBS prophylaxis. She had otherwise an uncomplicated , had care with at [facility]. The patient received an epidural for pain control. She continued to contract regularly and make cervical change on her own. The baby was category 1 tracing and reassuring. After about 4 hours, she progressed to 7 cm. The bulging membrane was ruptured and clear fluid was noted. She then progressed to 9/90/+1 in the next 3 hours with an anterior lip that was reducible. She was feeling pressure, and started pushing with contractions. PREOPERATIVE DIAGNOSIS: Newman intrauterine at 40 weeks and 3 days. POSTOPERATIVE DIAGNOSIS: Newman intrauterine at 40 weeks and 3 days. PROCEDURES PERFORMED: Normal spontaneous vaginal delivery, repair of second-degree lacerations. ANESTHESIOLOGIST: Dr. Das. ANESTHESIA: Epidural. FINDINGS: Viable female , score of 5 and 9, weight of 8 pounds. Baby had a tight nuchal cord x1 and a body cord. The baby did have thin meconium stained fluid and terminal meconium at delivery. The baby's head was asynclitic and delivered ROT. ESTIMATED BLOOD LOSS: 300 mL. DESCRIPTION OF PROCEDURE: The patient pushed with contractions, initially was not making a lot of progress, and the head was asynclitic and ROP presentation. Therefore, multiple positions were used to help with pushing efforts including on her back, hands and knees, and using the pushing bar. The baby did have some variable and early decels, and a prolonged decels to the 70s lasting 2 to 3 minutes that responded after stopping pushing and repositioning. After about 2-1/2 hours, the baby was . The baby delivered in ROT presentation. Anterior shoulder delivered easily followed by posterior shoulder and remaining body. There was a tight nuchal cord and a body cord which was reduced after delivery. The baby did not initially cry, but was moving all extremities and slightly pale. After stimulation, the baby did start crying within the next minute. The baby was placed on maternal chest and evaluated by awaiting nursing staff. Terminal meconium was noted. The umbilical cord was clamped and cut after 30 seconds and no longer pulsating. Umbilical cord gases were obtained. The placenta was removed with gentle traction on the umbilical cord and fundal massage. Moderate amount of blood was expressed with improvement in uterine tone. Perineum and vagina were carefully examined. She was noted to have a second-degree laceration. She did not have complete pain control with the epidural. Therefore, 15 mL of 1% lidocaine with epi was injected for local anesthesia. A 3-0 Vicryl was used to repair the second-degree laceration in usual fashion. Hemostasis was confirmed. Rectal exam was performed and no sphincter injury was noted. The patient tolerated the procedure well and was given care instructions. YONATAN RICKS /[id number] KVNG
[2020-05-14] MEDS: Ibuprofen 800 MG Tab PO PRN (19:28)
[2020-05-15] MEDS: Acetaminophen 500 MG Tab PO PRN (06:30)
--- NOTE | 2020-05-15 07:28 | PCM48HPAN ---
Post Anesthesia Note - EVALUATION WITHIN 48HRS OF ANESTHETIC Vital Signs in Normal Range: Yes Patient Participated in Evaluation: Yes Respiratory Function Stable: Yes Airway Patent: Yes Cardiovascular Function Stable: Yes Hydration Status Stable: Yes Pain Control Satisfactory: Yes Nausea and Vomiting Control Satisfactory: Yes Mental Status Recovered: Yes Vital Signs: Last Vital Signs Temp 36.3 C 05/15/20 04:30 Pulse 64 05/15/20 04:30 Resp 18 05/15/20 04:30 BP 116/64 05/15/20 04:30 Pulse Ox 98 05/15/20 04:30
[2020-05-15] MEDS: Docusate Sodium 100 MG Cap PO PRN (08:01)
[2020-05-15] MEDS: Ibuprofen 800 MG Tab PO PRN (08:01)
--- NOTE | 2020-05-15 11:02 | PCM.PNPP ---
- General Info Date of Service: 05/15/20 Functional Status: Reports: Pain Controlled, Tolerating Diet, Ambulating, Urinating - Review of Systems General: Reports: No Symptoms HEENT: Reports: No Symptoms Pulmonary: Reports: No Symptoms Cardiovascular: Reports: No Symptoms Gastrointestinal: Reports: No Symptoms Genitourinary: Reports: No Symptoms Musculoskeletal: Reports: No Symptoms Skin: Reports: No Symptoms Neurological: Reports: No Symptoms Psychiatric: Reports: No Symptoms - General Info Date of Service: 05/15/20 - Patient Data Vital Signs - Most Recent: Last Vital Signs Temp 96.9 F 05/15/20 07:43 Pulse 68 05/15/20 07:43 Resp 16 05/15/20 07:43 BP 121/73 05/15/20 07:43 Pulse Ox 100 05/15/20 07:43 Weight - Most Recent: 173 lb Lab Results - Last 24 Hours: Laboratory Results - last 24 hr 05/14/20 05/15/20 Range/Units 12:27 06:00 Hgb 11.0 L (12.0-16.0) g/dL Hct 33.0 L (36.0-46.0) % Cord ABG pH 7.260 (7.18-7.38) Cord ABG Base Excess -5 (-10--2) Cord VBG pH 7.334 (7.25-7.45) Cord VBG Base Excess -6 (-10--2) Med Orders - Current: Current Medications Acetaminophen (Acetaminophen 500 Mg Tab) 500 mg PO Q4H PRN PRN Reason: Pain Acetaminophen (Acetaminophen 500 Mg Tab) 1,000 mg PO Q4H PRN PRN Reason: Pain Last Admin: 05/15/20 06:30 Dose: 1,000 mg Documented by: Benzocaine/Menthol (Benzocaine/Menthol 20%-0.5% [place] 78 Gm Cannister) 78 gm TOP ASDIRECTED PRN PRN Reason: Perineal Comfort Measure Last Admin: 05/14/20 14:31 Dose: 1 bottle Documented by: Bisacodyl (Bisacodyl 10 Mg Supp) 10 mg RECTAL ONETIME PRN PRN Reason: Constipation Docusate Sodium (Docusate Sodium 100 Mg Cap) 100 mg PO BID PRN PRN Reason: Constipation Last Admin: 05/15/20 08:01 Dose: 100 mg Documented by: Emollient Ointment (Lanolin 100% Cream 7 Gm Tube) 0 gm TOP ASDIRECTED PRN PRN Reason: Sore Nipples Last Admin: 05/14/20 14:31 Dose: 1 applic Documented by: Ibuprofen (Ibuprofen 400 Mg Tab) 400 mg PO Q4H PRN PRN Reason: Pain Ibuprofen (Ibuprofen 800 Mg Tab) 800 mg PO Q6H PRN PRN Reason: Pain Last Admin: 05/15/20 08:01 Dose: 800 mg Documented by: Oxycodone HCl (Oxycodone 5 Mg Tab) 5 mg PO Q2H PRN PRN Reason: Pain Sodium Chloride (Sodium Chloride 0.9% 10 Ml Syringe) 10 ml FLUSH ASDIRECTED PRN PRN Reason: Keep Vein Open Sodium Chloride (Sodium Chloride 0.9% 2.5 Ml Syringe) 2.5 ml FLUSH ASDIRECTED PRN PRN Reason: Keep Vein Open Sodium Chloride (Sodium Chloride 0.9% 10 Ml Sdv) 10 ml IV ASDIRECTED PRN PRN Reason: IV Use Witch Nayeli (Witch Nayeli Medicated Pads 40/Jar) 1 pad TOP ASDIRECTED PRN PRN Reason: comfort care Last Admin: 05/14/20 14:31 Dose: 1 box Documented by: Discontinued Medications Ampicillin Sodium (Ampicillin 1 Gm Vial) Confirm Administered Dose 1 gm .ROUTE .STK-MED ONE Stop: 05/14/20 10:39 Last Admin: 05/15/20 07:19 Dose: Not Given Documented by: Butorphanol Tartrate (Butorphanol 1 Mg/Ml Sdv) 1 mg IVPUSH Q1H PRN PRN Reason: Pain Carboprost Tromethamine (Carboprost Tromethamine 250 Mcg/1 Ml Amp) 250 mcg IM ASDIRECTED PRN PRN Reason: Post Hemorrhage Fentanyl (Fentanyl 100 Mcg/2 Ml Sdv) Confirm Administered Dose 100 mcg .ROUTE .STK-MED ONE Stop: 05/14/20 03:30 Last Admin: 05/15/20 07:19 Dose: Not Given Documented by: Fentanyl (Fentanyl 100 Mcg/2 Ml Sdv) Confirm Administered Dose 100 mcg .ROUTE .STK-MED ONE Stop: 05/14/20 12:20 Last Admin: 05/15/20 07:19 Dose: Not Given Documented by: Oxytocin/Sodium Chloride (Oxytocin 30 Unit/500 Ml-Ns) 30 unit in 500 mls @ 999 mls/hr IV TITRATE [facility] Last Admin: 05/14/20 12:27 Dose: 500 mls/hr Documented by: Tranexamic Acid 1,000 mg/ (Sodium Chloride) 110 mls @ 660 mls/hr IV ONETIME PRN PRN Reason: Bleeding Ampicillin Sodium 2 gm/ Sodium (Chloride) 100 mls @ 200 mls/hr IV ONETIME ONE Stop: 05/14/20 02:37 Last Admin: 05/14/20 03:01 Dose: 200 mls/hr Documented by: Lactated Ringer's (Ringers, Lactated) 1,000 mls @ 150 mls/hr IV ASDIRECTED [facility] Last Admin: 05/14/20 08:12 Dose: 150 mls/hr Documented by: Ampicillin Sodium 1 gm/ Sodium (Chloride) 50 mls @ 100 mls/hr IV Q4H [facility] Last Admin: 05/14/20 10:53 Dose: 100 mls/hr Documented by: Ropivacaine (Naropin 0.2%) Confirm Administered Dose 100 mls @ as directed .ROUTE .STK-MED ONE Stop: 05/14/20 03:30 Last Admin: 05/15/20 07:19 Dose: Not Given Documented by: Sodium Chloride (Normal Saline) Confirm Administered Dose 50 mls @ as directed .ROUTE .STK-MED ONE Stop: 05/14/20 10:39 Last Admin: 05/15/20 07:19 Dose: Not Given Documented by: Ropivacaine (Naropin 0.2%) Confirm Administered Dose 100 mls @ as directed .ROUTE .STK-MED ONE Stop: 05/14/20 12:20 Last Admin: 05/15/20 07:19 Dose: Not Given Documented by: Lidocaine HCl (Lidocaine 1% 50 Ml Mdv) 50 ml INJECT ONETIME PRN PRN Reason: Laceration repair Last Admin: 05/14/20 13:38 Dose: 50 ml Documented by: Methylergonovine Maleate (Methylergonovine 0.2 Mg/1 Ml Amp) 0.2 mg IM ASDIRECTED PRN PRN Reason: Post Hemorrhage Misoprostol (Misoprostol 200 Mcg Tab) 200 mcg PO ONETIME PRN PRN Reason: Post Hemorrhage Nalbuphine HCl (Nalbuphine 10 Mg/1 Ml Vial) 10 mg IVPUSH Q1H PRN PRN Reason: Pain (severe 7-10) Sterile Water (Water For Irrigation,Sterile 1,000 Ml Container) 1,000 ml IRR ASDIRECTED PRN PRN Reason: delivery - Interaction Disposition, : [place] to Nursery Feeding: Attempted ; Nursed Fair/Poor Support Person: Significant Other - Recovery Exam Fundal Tone: Firm Fundal Level: At Umbilicus Fundal Placement: Midline Lochia Amount: Scant Lochia Color: Rubra/Red Perineum Description: Other (see below) Other Perinuem Description: 2nd degree laceration with repair. Episiotomy/Laceration: Approximated Bladder Status: Voiding Urinary Elimination: Voided - Exam General: Alert, Oriented, Cooperative, No Acute Distress Lungs: Normal Respiratory Effort Cardiovascular: Regular Rate, Regular Rhythm GI/Abdominal Exam: Soft, Non-Tender Extremities: Normal Inspection, Normal Range of Motion, Non-Tender, Normal Capillary Refill Skin: Warm, Dry, Intact Neurological: No New Focal Deficit, Normal Speech, Normal Tone, Strength Equal Bilateral, Sensation Intact Psy/Mental Status: Alert, Normal Affect, Normal Mood - Problem List & Annotations (1) (spontaneous vaginal delivery) SNOMED Code(s): 351390776 Code(s): O80 - ENCOUNTER FOR FULL-TERM UNCOMPLICATED DELIVERY Status: Acute Priority: High Current Visit: Yes - Problem List Review Problem List Initiated/Reviewed/Updated: No - Plan Plan:: Day 1 A: Ambulating, voiding, and tolerating diet. Attempted , but "nothing came". No concerns/questions at this time. Lochia small, no clots. P: Routine plan of care. Encourage continued attempts at pumping and/or . Education provided regarding milk production and what to expect. Dr. Perez updated.
[2020-05-16] MEDS: Ibuprofen 800 MG Tab PO PRN ×2 (00:37→08:34)
--- NOTE | 2020-05-16 07:33 | PCM.DCSUM1 ---
Discharge Summary - Hospital Course Free Text/Narrative:: Discharge home. Follow up in the clinic in 6 weeks for routine visit; sooner, if needed. Diagnosis: Stroke: No Modified Blanco Scale: No Symptoms at All Modified Blanco Scale Score: 0 - Discharge Data Discharge Date: 05/16/20 Discharge Disposition: Home, Self-Care 01 Condition: Good - Referral to Home Health Primary Care Physician: PCP None - Discharge Diagnosis/Problem(s) (1) (spontaneous vaginal delivery) SNOMED Code(s): 334436948 ICD Code: O80 - ENCOUNTER FOR FULL-TERM UNCOMPLICATED DELIVERY Status: Acute Priority: High Current Visit: Yes - Patient Instructions Diet: Regular Diet as Tolerated, Drink 8-10+ Glasses/Day Activity: Apply Ice Driving: Do Not Drive Showering/Bathing: May Shower Notify Provider of: Fever, Increased Pain, Swelling and Redness, Drainage, Nausea and/or Vomiting - Discharge Plan *PRESCRIPTION DRUG MONITORING PROGRAM REVIEWED*: Not Applicable *COPY OF PRESCRIPTION DRUG MONITORING REPORT IN PATIENT LUDIN: Not Applicable Prescriptions/Med Rec: Ibuprofen [Motrin] 800 mg PO Q6H PRN #90 tablet PRN Reason: Pain Home Medications: Home Meds Ibuprofen [Motrin] 800 mg PO Q6H PRN #90 tablet 05/16/20 [Rx] Oxygen Therapy Mode: Room Air - Discharge Summary/Plan Comment DC Time >30 min.: Yes - General Info Date of Service: 05/16/20 Functional Status: Reports: Pain Controlled, Tolerating Diet, Ambulating, Urinating - Review of Systems General: Reports: No Symptoms HEENT: Reports: No Symptoms Pulmonary: Reports: No Symptoms Cardiovascular: Reports: No Symptoms Gastrointestinal: Reports: No Symptoms Genitourinary: Reports: No Symptoms Musculoskeletal: Reports: No Symptoms Skin: Reports: No Symptoms Neurological: Reports: No Symptoms Psychiatric: Reports: No Symptoms - Patient Data Vitals - Most Recent: Last Vital Signs Temp 98.8 F 05/15/20 19:57 Pulse 68 05/15/20 19:57 Resp 18 05/15/20 19:57 BP 126/68 05/15/20 19:57 Pulse Ox 97 05/15/20 19:57 Weight - Most Recent: 173 lb Med Orders - Current: Current Medications Acetaminophen (Acetaminophen 500 Mg Tab) 500 mg PO Q4H PRN PRN Reason: Pain Acetaminophen (Acetaminophen 500 Mg Tab) 1,000 mg PO Q4H PRN PRN Reason: Pain Last Admin: 05/15/20 06:30 Dose: 1,000 mg Documented by: Benzocaine/Menthol (Benzocaine/Menthol 20%-0.5% [place] 78 Gm Cannister) 78 gm TOP ASDIRECTED PRN PRN Reason: Perineal Comfort Measure Last Admin: 05/14/20 14:31 Dose: 1 bottle Documented by: Bisacodyl (Bisacodyl 10 Mg Supp) 10 mg RECTAL ONETIME PRN PRN Reason: Constipation Docusate Sodium (Docusate Sodium 100 Mg Cap) 100 mg PO BID PRN PRN Reason: Constipation Last Admin: 05/15/20 08:01 Dose: 100 mg Documented by: Emollient Ointment (Lanolin 100% Cream 7 Gm Tube) 0 gm TOP ASDIRECTED PRN PRN Reason: Sore Nipples Last Admin: 05/14/20 14:31 Dose: 1 applic Documented by: Ibuprofen (Ibuprofen 400 Mg Tab) 400 mg PO Q4H PRN PRN Reason: Pain Ibuprofen (Ibuprofen 800 Mg Tab) 800 mg PO Q6H PRN PRN Reason: Pain Last Admin: 05/16/20 00:37 Dose: 800 mg Documented by: Oxycodone HCl (Oxycodone 5 Mg Tab) 5 mg PO Q2H PRN PRN Reason: Pain Sodium Chloride (Sodium Chloride 0.9% 10 Ml Syringe) 10 ml FLUSH ASDIRECTED PRN PRN Reason: Keep Vein Open Sodium Chloride (Sodium Chloride 0.9% 2.5 Ml Syringe) 2.5 ml FLUSH ASDIRECTED PRN PRN Reason: Keep Vein Open Sodium Chloride (Sodium Chloride 0.9% 10 Ml Sdv) 10 ml IV ASDIRECTED PRN PRN Reason: IV Use Witch Nayeli (Witch Nayeli Medicated Pads 40/Jar) 1 pad TOP ASDIRECTED PRN PRN Reason: comfort care Last Admin: 05/14/20 14:31 Dose: 1 box Documented by: Discontinued Medications Ampicillin Sodium (Ampicillin 1 Gm Vial) Confirm Administered Dose 1 gm .ROUTE .STK-MED ONE Stop: 05/14/20 10:39 Last Admin: 05/15/20 07:19 Dose: Not Given Documented by: Butorphanol Tartrate (Butorphanol 1 Mg/Ml Sdv) 1 mg IVPUSH Q1H PRN PRN Reason: Pain Carboprost Tromethamine (Carboprost Tromethamine 250 Mcg/1 Ml Amp) 250 mcg IM ASDIRECTED PRN PRN Reason: Post Hemorrhage Fentanyl (Fentanyl 100 Mcg/2 Ml Sdv) Confirm Administered Dose 100 mcg .ROUTE .STK-MED ONE Stop: 05/14/20 03:30 Last Admin: 05/15/20 07:19 Dose: Not Given Documented by: Fentanyl (Fentanyl 100 Mcg/2 Ml Sdv) Confirm Administered Dose 100 mcg .ROUTE .STK-MED ONE Stop: 05/14/20 12:20 Last Admin: 05/15/20 07:19 Dose: Not Given Documented by: Oxytocin/Sodium Chloride (Oxytocin 30 Unit/500 Ml-Ns) 30 unit in 500 mls @ 999 mls/hr IV TITRATE [facility] Last Admin: 05/14/20 12:27 Dose: 500 mls/hr Documented by: Tranexamic Acid 1,000 mg/ (Sodium Chloride) 110 mls @ 660 mls/hr IV ONETIME PRN PRN Reason: Bleeding Ampicillin Sodium 2 gm/ Sodium (Chloride) 100 mls @ 200 mls/hr IV ONETIME ONE Stop: 05/14/20 02:37 Last Admin: 05/14/20 03:01 Dose: 200 mls/hr Documented by: Lactated Ringer's (Ringers, Lactated) 1,000 mls @ 150 mls/hr IV ASDIRECTED [facility] Last Admin: 05/14/20 08:12 Dose: 150 mls/hr Documented by: Ampicillin Sodium 1 gm/ Sodium (Chloride) 50 mls @ 100 mls/hr IV Q4H [facility] Last Admin: 05/14/20 10:53 Dose: 100 mls/hr Documented by: Ropivacaine (Naropin 0.2%) Confirm Administered Dose 100 mls @ as directed .ROUTE .RUST-MED ONE Stop: 05/14/20 03:30 Last Admin: 05/15/20 07:19 Dose: Not Given Documented by: Sodium Chloride (Normal Saline) Confirm Administered Dose 50 mls @ as directed .ROUTE .STK-MED ONE Stop: 05/14/20 10:39 Last Admin: 05/15/20 07:19 Dose: Not Given Documented by: Ropivacaine (Naropin 0.2%) Confirm Administered Dose 100 mls @ as directed .ROUTE .STK-MED ONE Stop: 05/14/20 12:20 Last Admin: 05/15/20 07:19 Dose: Not Given Documented by: Lidocaine HCl (Lidocaine 1% 50 Ml Mdv) 50 ml INJECT ONETIME PRN PRN Reason: Laceration repair Last Admin: 05/14/20 13:38 Dose: 50 ml Documented by: Methylergonovine Maleate (Methylergonovine 0.2 Mg/1 Ml Amp) 0.2 mg IM ASDIRECTED PRN PRN Reason: Post Hemorrhage Misoprostol (Misoprostol 200 Mcg Tab) 200 mcg PO ONETIME PRN PRN Reason: Post Hemorrhage Nalbuphine HCl (Nalbuphine 10 Mg/1 Ml Vial) 10 mg IVPUSH Q1H PRN PRN Reason: Pain (severe 7-10) Sterile Water (Water For Irrigation,Sterile 1,000 Ml Container) 1,000 ml IRR ASDIRECTED PRN PRN Reason: delivery - Exam General: Reports: Alert, Oriented, Cooperative, No Acute Distress Lungs: Reports: Normal Respiratory Effort Cardiovascular: Reports: Regular Rate, Regular Rhythm GI/Abdominal Exam: Soft, Non-Tender (Female) Exam: Deferred Rectal (Female) Exam: Deferred Back Exam: Reports: Normal Inspection, Full Range of Motion Extremities: Normal Inspection, Normal Range of Motion, Non-Tender, Normal Capillary Refill Skin: Reports: Warm, Dry, Intact Neurological: Reports: No New Focal Deficit, Normal Speech, Normal Tone, Sensation Intact Psy/Mental Status: Reports: Alert, Normal Affect, Normal Mood
[2020-05-16 08:23] VITALS: BP 126/76; PULSE 64
[2020-05-16] MEDS: Docusate Sodium 100 MG Cap PO PRN (08:33)
== END 2020-05-16 13:10 | disposition home or self-care (01) | DRG 560 ==
LOC: MW.OBCHECK 01:40 → MW.OB 01:41 → MW.OBCHECK 02:08 → MW.OB 02:08 → OBSVTOIN 13:07 → MW.OB 15:15
PROVIDERS: ADMIT Obstetrics & Gynecology; ATTEND Obstetrics & Gynecology
PROC: 10E0XZZ Delivery of Products of Conception, External Approach (ICD-10-PCS; principal; 2020-05-14)
PROC: 0KQM0ZZ Repair Perineum Muscle, Open Approach (ICD-10-PCS; 2020-05-14)
PROC: 4A1HXCZ Monitoring of Products of Conception, Cardiac Rate, External Approach (ICD-10-PCS; 2020-05-14)
PROC: 3E0R3BZ Introduction of Anesthetic Agent into Spinal Canal, Percutaneous Approach (ICD-10-PCS; 2020-05-14)
DX: O48.0 Post-term pregnancy (principal); Z3A.40 40 weeks gestation of pregnancy; Z37.0 Single live birth; O99.824 Streptococcus B carrier state complicating childbirth; O99.344 Other mental disorders complicating childbirth; F32.9 Major depressive disorder, single episode, unspecified; Z20.822 Contact with and (suspected) exposure to COVID-19; O70.1 Second degree perineal laceration during delivery; O69.1XX0 Labor and delivery complicated by cord around neck, with compression, not applicable or unspecified; O77.0 Labor and delivery complicated by meconium in amniotic fluid; O76 Abnormality in fetal heart rate and rhythm complicating labor and delivery
CPT/HCPCS: 01967; 36415; 59025; 59409; 81003; 82803; 84112; 85014; 85018; 85027; 86592; 86850; 86900; 86901; A9270-GY; J0290; J2001; J2590; J2795; J3010; J7120; U0002